=== PATIENT | female | born 1940 | race Caucasian/White ===

== ENCOUNTER 2017-06-20 18:20 | Inpatient (IN) | payer MEDICARE, BC ==
[~2017-06-20 18:20] MED LIST: BENADRYL25 MG PO; LEVAQUIN500 MG PO; LEVAQUIN750 MG PO; MEDROL DOSE PACK4 MG; MEVACOR20 MG PO; MUCINEX DM ER1 EAC1 PO; TYLENOL 325 MG325 MG PO; VENTOLIN HFA18 GM INH
[2017-06-20 20:22] LABS: BASOPHILS 0.1 % (0-2); EOSINOPHILS 0.1 % (0-7); HEMATOCRIT 35.6 % (36.0-48.0); HEMOGLOBIN 11.8 g/dL (12-16); IMMATURE GRANULOCYTES 0.3 % (0-5); LYMPHOCYTES 5.6 % (15-50); MCHC 33.1 g/dL (31.0-37.0); MCV 93.4 fL (80.0-100.0); MEAN PLATELET VOLUME 11.3 fL (7.4-10.4); MONOCYTES 8.1 % (2-11); NEUTROPHILS 85.8 % (40-80); PLATELET COUNT 164 10x3/uL (130-400); RBC 3.81 10x6/uL (4.00-5.40); RDW 13.8 % (11.5-14.5); WBC 12.3 10x3/uL (4.8-10.8)
[2017-06-20 20:39] LABS: ALBUMIN 3.3 g/dL (3.4-5.0); BILIRUBIN - TOTAL 0.62 mg/dL (0.2-1.3); CARBON DIOXIDE 25.3 mmol/L (21.0-32.0); CREATININE - SERUM 0.9 mg/dL (0.6-1.3); POTASSIUM - SERUM 3.3 mmol/L (3.5-5.1); PROTEIN - SERUM 7.2 g/dL (6.4-8.2)
[2017-06-20 20:56] LABS: APPEARANCE CLEAR (CLEAR); BILIRUBIN NEGATIVE (NEGATIVE); COLOR YELLOW (YELLOW); GLUCOSE NEGATIVE (NEGATIVE); KETONE MODERATE mg/dL (NEGATIVE); NITRITE NEGATIVE (NEGATIVE); PROTEIN TRACE mg/dL (NEGATIVE); SPECIFIC GRAVITY 1.015 (1.005-1.020); UROBILINOGEN NORMAL (NORMAL)
[2017-06-20 20:57] LABS: EPITHELIAL CELLS 0-5 /hpf (0-5); WHITE CELLS - URINE 0-5 /hpf (0-5)
[2017-06-20 20:58] LABS: BACTERIA FEW /hpf (NONE SEEN)
--- NOTE | 2017-06-21 00:30 | NUR ---
REC'D TO ROOM 2240 FROM ER DEPT PER STRETCHER A 77 Y/O W/FE PER SERVICES DR. MCGEE WITH DX. WEAKNESS AND DEHYDRATION AND FEVER.AND POSSIBLE PNEUMONIA. ALLERGY=AUGMENTIN. AMBULATED TO BR VOIDED FREELY. ASSISTED BACK TO BED SR UP X2 PT'S SISTER AT BEDSIDE.
[2017-06-21] MEDS ORDERED: ROBAXIN500 MG PO (00:31)
[2017-06-21] MEDS ORDERED: OXYBUTYNIN CHLOR5 MG PO (00:33)
[2017-06-21] MEDS ORDERED: FISH OIL 1,2001 CAP PO (00:34)
[2017-06-21] MEDS ORDERED: GLUCOSAMINE & C1 CAP (00:36)
[2017-06-21] MEDS ORDERED: TUMERIC PO (00:40)
[2017-06-21] MEDS ORDERED: VITAMIN D31000 UNI2 PO (00:40)
[2017-06-21] MEDS ORDERED: CRANBERRY 400 M1 TA1 PO (00:41)
[2017-06-21] MEDS ORDERED: VIC-FORTE CAPSUL1 MG PO (00:42)
[2017-06-21] MEDS ORDERED: VITAMIN B-12500 MC1 PO (00:42)
--- NOTE | 2017-06-21 02:00 | NUR ---
O2 ON 3L/M PER NC BILATERAL LUNGS SOUNDS DIMINISHED. NO DISTRESS. HOB UP 30 DEGREES.
[2017-06-21 02:57] VITALS: BP 140/70; BMI 26.5
[2017-06-21] MEDS ORDERED: XALATAN 0.0052.5 ML EACH EYE (03:18)
--- NOTE | 2017-06-21 04:00 | NUR ---
UP TO BSC WITH HELP VOIDED ASSISTED BACK TO BED.
[2017-06-21 06:32] LABS: BASOPHILS 0.1 % (0-2); EOSINOPHILS 0.1 % (0-7); HEMATOCRIT 34.1 % (36.0-48.0); HEMOGLOBIN 11.3 g/dL (12-16); IMMATURE GRANULOCYTES 0.3 % (0-5); LYMPHOCYTES 6.8 % (15-50); MCHC 33.1 g/dL (31.0-37.0); MCV 93.4 fL (80.0-100.0); MEAN PLATELET VOLUME 11.1 fL (7.4-10.4); MONOCYTES 8.3 % (2-11); NEUTROPHILS 84.4 % (40-80); PLATELET COUNT 157 10x3/uL (130-400); RBC 3.65 10x6/uL (4.00-5.40); WBC 12.4 10x3/uL (4.8-10.8)
[2017-06-21 06:58] LABS: ANION GAP 13.6 mmol/L (8-16); CALCIUM 8.6 mg/dL (8.5-10.1); CARBON DIOXIDE 24.8 mmol/L (21.0-32.0); CREATININE - SERUM 0.8 mg/dL (0.6-1.3); POTASSIUM - SERUM 3.4 mmol/L (3.5-5.1)
--- NOTE | 2017-06-21 07:25 | NUR ---
REPORT RECEIVED, ASSUMED CARE OF PT. RESTING WITH FAMILY AT BEDSIDE. R FOREARM IV INFUSING FLUIDS ORDERED, DRSG C/D/I. O2 VIA NASAL CANNULA IN PLACE, 3 L. NO NEEDS VOICED AT THIS TIME. BED IN LOWEST POSITION, SIDE RAILS UP X 2, CALL LIGHT WITHIN REACH.
[2017-06-21 08:03] VITALS: BP 141/46
[2017-06-21 12:07] VITALS: BP 99/53
[2017-06-21 16:12] VITALS: BP 124/56
[2017-06-21 20:00] VITALS: BP 116/54
[2017-06-22 06:49] LABS: BASOPHILS 0.1 % (0-2); EOSINOPHILS 1.1 % (0-7); HEMATOCRIT 29.8 % (36.0-48.0); HEMOGLOBIN 9.9 g/dL (12-16); IMMATURE GRANULOCYTES 0.2 % (0-5); LYMPHOCYTES 7.8 % (15-50); MCH 30.7 pg (26.0-34.0); MCHC 33.2 g/dL (31.0-37.0); MCV 92.3 fL (80.0-100.0); MEAN PLATELET VOLUME 11.2 fL (7.4-10.4); MONOCYTES 7.9 % (2-11); NEUTROPHILS 82.9 % (40-80); PLATELET COUNT 160 10x3/uL (130-400); RBC 3.23 10x6/uL (4.00-5.40); WBC 9.8 10x3/uL (4.8-10.8)
[2017-06-22 07:02] LABS: CALC OSMOLALITY 285 mosm/kg (275-300); CALCIUM 8.5 mg/dL (8.5-10.1); CARBON DIOXIDE 24.6 mmol/L (21.0-32.0); CHLORIDE - SERUM 111 mmol/L (98-107); CREATININE - SERUM 0.7 mg/dL (0.6-1.3); GLUCOSE 105 mg/dL (74-106); POTASSIUM - SERUM 3.2 mmol/L (3.5-5.1); SODIUM 144 mmol/L (136-145); UREA NITROGEN 9 mg/dL (7-18); eGFR NON AFRICAN AMERICAN 85 mL/min (90-120)
--- NOTE | 2017-06-22 07:10 | NUR ---
REPORT RECEIEVED, ASSUMED CARE OF PT. RESTING, EASILY AROUSED. SISTER AT BEDSIDE, NO NEEDS VOICED AT THIS TIME. R FOREARM IV INFUSING ORDERED, DRSG C/D/I. O2 VIA NASAL CANNULA AT 3L/MIN. BED IN LOWEST POSITION, SIDE RAILS UP X 2, CALL LIGHT WITHIN REACH.
--- NOTE | 2017-06-22 07:17 | NUR ---
ASSESSED AT THE BEGINNING OF THE SHIFT. PT IS ALERT AND ORIENTED, ABLE TO VERBALIZE NEEDS. THE SISTER REMAINS AT THE BEDSIDE AND IS TAKING HER TO THE BATHROOM NEEDED. THERE IS O2 AT 3 LITERS AND HER RESPIRATIONS SEEM GOOD WITH VERY LITTLE COUGHING. SHE HAS COMPLAINTED OF NEEDING COUGH SYRUP AND IS GOING TO ASK THE MD FOR IT TODAY. SHE IS ABLE TO TURN AND REPOSITION. THE BED IS LOW, RAILS UP X'S 2 WITH THE CALL LIGHT AT HAND. SCD'S HAVE BEEN WORN.
[2017-06-22 08:37] VITALS: BP 128/53
--- NOTE | 2017-06-22 11:46 | NUR ---
Patient Name: LAURY YANEZ Admission Status: ER Accout number: [id number] Admission Date: 06-21-2017 : 1940 Admission Diagnosis:PNEUMONIA, UNSPECIFIED ORGANISM Attending: NANCY MCGEE Current LOS: 1 Anticipated DC Date: 06-23-2017 Planned Disposition: Home Primary Insurance: MEDICARE A & B Discharge Planning Comments: CM SPOKE WITH PATIENTS SISTER (JIE) ON PHONE REGARDING D/C NEEDS AND PLANS. SISTER STATED SHE WILL DRIVE PATIENT HOME AT DISCHARGE. PATIENT LIVES ON PROPERTY BY SISTER AND DOES HAVE A LITTLE MEMORY LOSS. PATIENT IS INDEPENDENT WITH HER CARE AND HAS A CANE AND SHOWER STOOL AT HOME. PATIENT SEES [facility] AT [facility] AND USES [facility] UNLESS DISCHARGED ON SUNDAY OR SUNDAY AND THEN SHE WILL USE [facility] [address] PATIENTS SISTER DOES NOT WANT HOME HEALTH FOR PATIENT. CM WILL CONTINUE TO FOLLOW PATIENT WITH D/C NEEDS AND PLANS. PCP [facility] AT [facility] M-F [phone] [facility] [phone] Torpedo Worker: Renetta Bautista How many steps to enter\exit or inside your home? 3 /RAILS 0 * [facility] 0 * Pharmacy [facility] BUT ON SUN AND SUNDAY [facility] [address] 0 * Preadmission Environment Home Alone 0 * ADLs Independent 0 * Equipment Cane Shower Chair 0 * List name and contact numbers for known caregivers / representatives who currently or will assist patient after discharge: JIE BUSTAMANTE (SISTER) [phone] * Community resources currently utilized None 0 * Additional services required to return to the preadmission environment? Yes 0 * Can the patient safely return to the preadmission environment? Yes 0 * Has this patient been hospitalized within the prior 30 days at any hospital? No 0 Grand Total: 0
[2017-06-22 12:20] VITALS: BP 155/64
[2017-06-22 15:56] VITALS: BP 160/71
--- NOTE | 2017-06-22 16:00 | NUR ---
PT IV PULLED OUT OF ARM ACCIDENTLY BY PT, BLEED CONTROL, BANDAGE APPLIED. RE-SITED TO R FOREARM.
[2017-06-22 21:35] VITALS: BP 151/64
[2017-06-23 00:47] VITALS: BP 134/74
--- NOTE | 2017-06-23 03:21 | NUR ---
PT COUGHING FREQUENTLY. GAVE COUGH MEDICINE TWICE THIS SHIFT. DAUGHTER AT BEDSIDE. PT CONFUSED AT TIMES TO SITUATION. GAVE TYLENOL FOR TEMP 100.2 REQUESTED BY PT/FAMILY. NO OTHER NEEDS. ASSESSMENT COMPLETE PER FLOW-SHEET. WILL CONTINUE TO MONITOR.
[2017-06-23 04:00] VITALS: BP 137/68
--- NOTE | 2017-06-23 07:00 | NUR ---
REPORT RECIEVED ASSUMED CARE. PATIENT IN BED WITH IV INTACT. NO COMPLAINTS. CALL LIGHT WITHIN REACH.
--- NOTE | 2017-06-23 07:00 | NUR ---
REPORT RECIEVED ASSUMED CARE. PATIENT IN BED WITH NO COMPLAINTS AT THIS TIME. IV INTACT. FAMILY AT BEDSIDE. CALL LIGHT WITHIN REACH.
[2017-06-23 07:07] LABS: BASOPHILS 0.1 % (0-2); EOSINOPHILS 1.7 % (0-7); HEMATOCRIT 28.4 % (36.0-48.0); HEMOGLOBIN 9.5 g/dL (12-16); IMMATURE GRANULOCYTES 0.4 % (0-5); LYMPHOCYTES 9.3 % (15-50); MCH 30.6 pg (26.0-34.0); MCHC 33.5 g/dL (31.0-37.0); MCV 91.6 fL (80.0-100.0); MEAN PLATELET VOLUME 11.3 fL (7.4-10.4); MONOCYTES 10.3 % (2-11); NEUTROPHILS 78.2 % (40-80); PLATELET COUNT 186 10x3/uL (130-400); RDW 14.5 % (11.5-14.5); WBC 8.1 10x3/uL (4.8-10.8)
[2017-06-23 07:15] LABS: CALC OSMOLALITY 284 mosm/kg (275-300); CALCIUM 8.7 mg/dL (8.5-10.1); CARBON DIOXIDE 24.6 mmol/L (21.0-32.0); CHLORIDE - SERUM 111 mmol/L (98-107); CREATININE - SERUM 0.7 mg/dL (0.6-1.3); GLUCOSE 104 mg/dL (74-106); POTASSIUM - SERUM 3.2 mmol/L (3.5-5.1); SODIUM 144 mmol/L (136-145); UREA NITROGEN 8 mg/dL (7-18); eGFR NON AFRICAN AMERICAN 85 mL/min (90-120)
[2017-06-23 08:11] VITALS: BP 139/83
--- NOTE | 2017-06-23 10:20 | NUR ---
PATIENT SITTING UP IN BED WITH NO COMPLAINTS AT THIS TIME. IV INTACT. FAMILY AT BEDSIDE. CALL LIGHT WITHIN REACH.
[2017-06-23] MEDS ORDERED: ROBITUSSIN AC (10 M1 PO (10:30)
--- NOTE | 2017-06-23 12:45 | NUR ---
PATIENT RECIEVED DC ORDERS. VERBALIZED UNDERSTANDING. PRESCRIPTION GIVEN TO FAMILY. LEVAQUIN AND MEDROL DOSE MARIA R CALLED INTO [facility] [address]QUEST[address]. IV REMOVED WITH CATH TIP INTACT. VERBALIZED UNDERSTANDING. CALL LIGHT WITHIN REACH.
--- NOTE | 2017-06-23 14:22 | NUR ---
CM MET W/ PATIENT, HER SISTER, JIE AND HER SON AT THE BEDSIDE. PLAN FOR DISCHARGE TO HOME. THE PAIENT' SISTER STATES SHE NEEDS A WALKER. SHE ALSO REQUEST A NEBULIZER IF SHE IS SENT HOME ON MDI'S. THE FAMILY DECLINES HOME HEALTH. CM ADVISED HOW TO OBTAIN H/H AFTER DISCHARGE. NO PREFERRED PROVIDER FOR THE WALKER. TC TO [facility]. SPOKE WITH STEM MOUNTER, STEPHANIE. [facility] THE [facility] OFFICE CAN DELIVER THE WALKER TO THE PATIENT'S HOME. FAMILY IS COMFORTABLE WITH THAT. CM FAXED MD ORDER AND INFORMATION TO [facility]. THEY WILL CONTACT THE PATIENT'S FAMILY FOR DELIVERY. THE PATIENT WILL NOT QUALIFY FOR MEDICARE TO PAY FOR NEBULIZER WITH PRESENT DOCUMENTATION. CM INSTRUCTED THE FAMILY TO CALL PATIENT'S PRIMARY SHE MAY HAVE MORE DETAILED INFORMATION FROM HER PCP WITH QUALIFYING DX. THEY DENY ANY ADDITIONAL NEEDS. PATIENT'S PHYSICAL ADDRESS [address] [place] [address], [id number] NOTED FOR DME DELIVERY. FACE SHEET HAD MAILING ADDRESS ONLY.
== END 2017-06-23 13:07 | disposition home or self-care (01) | DRG 193 ==
LOC: D.ER 18:20 → D.MS 23:17 → OBSVTIME 23:17 → D.MS 06-21 14:08
PROVIDERS: Emergency Medicine Emergency Medical Services; Family Medicine; ADMIT Family Medicine
DX: J18.9 Pneumonia, unspecified organism (principal); G93.40 Encephalopathy, unspecified; E78.5 Hyperlipidemia, unspecified

== ENCOUNTER 2019-06-11 19:57 | Observation (INO) | payer MEDICARE, BC ==
[~2019-06-11] VITALS: Ht 154.9 cm; Wt 71.8 kg
[~2019-06-11 19:57] MED LIST changes: +CRANBERRY 400 M1 TA1 PO; +FISH OIL 1,2001 CAP PO; +GLUCOSAMINE-CHONDROI PO; +OXYBUTYNIN CHLOR5 MG PO; +ROBAXIN500 MG PO; +ROBITUSSIN AC (10 M1 PO; +TUMERIC PO; +VIC-FORTE CAPSUL1 MG PO; +VITAMIN B-12500 MC1 PO; +VITAMIN D31000 UNI2 PO; +XALATAN 0.0052.5 ML EACH EYE
[2019-06-11 21:20] LABS: BASOPHILS 0.1 % (0-2); EOSINOPHILS 0.1 % (0-7); HEMATOCRIT 39.2 % (36.0-48.0); IMMATURE GRANULOCYTES 0.3 % (0-5); LYMPHOCYTES 6.3 % (15-50); MCH 31.4 pg (26.0-34.0); MCHC 33.2 g/dL (31.0-37.0); MCV 94.7 fL (80.0-100.0); MEAN PLATELET VOLUME 11.2 fL (7.4-10.4); MONOCYTES 6.3 % (2-11); NEUTROPHILS 86.9 % (40-80); PLATELET COUNT 179 10x3/uL (130-400); RBC 4.14 10x6/uL (4.00-5.40); RDW 13.9 % (11.5-14.5); WBC 15.5 10x3/uL (4.8-10.8)
[2019-06-11 21:54] LABS: APPEARANCE CLEAR (CLEAR); BILIRUBIN NEGATIVE (NEGATIVE); COLOR YELLOW (YELLOW); GLUCOSE NEGATIVE (NEGATIVE); KETONE SMALL mg/dL (NEGATIVE); NITRITE NEGATIVE (NEGATIVE); PROTEIN NEGATIVE (NEGATIVE); SPECIFIC GRAVITY 1.015 (1.005-1.020); UROBILINOGEN NORMAL (NORMAL); WHITE CELLS - URINE 0-5 /hpf (NEGATIVE)
[2019-06-11 21:55] LABS: BACTERIA FEW /hpf (NEGATIVE); EPITHELIAL CELLS OCC /hpf (0-5); RED CELLS - URINE OCC /hpf (0-5)
[2019-06-11 22:00] LABS: ALBUMIN 3.6 g/dL (3.4-5.0); ALKALINE PHOSPHATASE 67 U/L (46-116); ALT (SGPT) 16 U/L (10-68); BILIRUBIN - TOTAL 0.76 mg/dL (0.2-1.3); CALC OSMOLALITY 281 mosm/kg (275-300); CALCIUM 8.8 mg/dL (8.5-10.1); CARBON DIOXIDE 28.8 mmol/L (21.0-32.0); CHLORIDE - SERUM 104 mmol/L (98-107); CREATININE - SERUM 0.7 mg/dL (0.6-1.3); GLUCOSE 113 mg/dL (74-106); POTASSIUM - SERUM 4.4 mmol/L (3.5-5.1); PROTEIN - SERUM 6.8 g/dL (6.4-8.2); SODIUM 141 mmol/L (136-145); UREA NITROGEN 12 mg/dL (7-18); eGFR NON AFRICAN AMERICAN 85 mL/min (90-120)
[2019-06-11 22:09] LABS: CKMB 0.2 U/L (0.0-3.6); CREATINE KINASE 42 UL (21-215); PRO BNP 217 pg/mL (0-450)
[2019-06-11 22:10] LABS: TROPONIN-I < 0.017 ng/mL (0.000-0.060)
--- NOTE | 2019-06-12 01:20 | NUR ---
RECEIVED PT FROM ER VIA STRETCHER. PT IS ALERT AND ORIENTED TO SELF AND PLACE. CONFUSED. ACCOMPANIED BY SISTER/CAREGIVER. PT SON BRII IS POA BUT NOT PRESENT. STATES PT ALMOST FAINTED TODAY. HX OF FALL 1 MONTH AGO. REPORTS EPISODE OF DIARRHEA YESTERDAY AM. BRUISES NOTED TO BLE. GEN WEAKNESS NOTED. NOLVIA ALARM I USE FOR PT SAFETY. RESP NONLABORED. INSTRUCTED ON NPO STATUS. INCONT OF URINE. BRIEF ON. PTS SISTER JIE LIVES WITH HER. NS BOLUS INFUSING AT THIS TIME IN LT FOREARM WITHOUT DIFF. DENIES PAIN. SR ELEVATED X2. CL IN REACH.
[2019-06-12] MEDS ORDERED: LOVASTATIN20 MG PO (01:58)
[2019-06-12] MEDS ORDERED: ARMOUR THYROID30 MG PO (01:59)
[2019-06-12] MEDS ORDERED: ALEVE220 MG PO (02:00)
[2019-06-12 02:56] VITALS: BP 147/73; Ht 154.9 cm; Wt 71.8 kg
--- NOTE | 2019-06-12 03:48 | NUR ---
EYES CLOSED. RESP EVEN AND NONLABORED. SISTER AT BEDSIDE. NO DISTRESS. NOLVIA ALARM ON. IV INFUSING WITHOUT DIFF. CL IN REACH.
[2019-06-12 05:12] VITALS: BP 154/70
[2019-06-12 06:14] LABS: BASOPHILS 0.2 % (0-2); EOSINOPHILS 0.4 % (0-7); HEMATOCRIT 36.4 % (36.0-48.0); HEMOGLOBIN 11.9 g/dL (12-16); IMMATURE GRANULOCYTES 0.2 % (0-5); LYMPHOCYTES 9.6 % (15-50); MCH 30.5 pg (26.0-34.0); MCHC 32.7 g/dL (31.0-37.0); MCV 93.3 fL (80.0-100.0); MEAN PLATELET VOLUME 11.3 fL (7.4-10.4); MONOCYTES 6.9 % (2-11); NEUTROPHILS 82.7 % (40-80); PLATELET COUNT 193 10x3/uL (130-400); RDW 14.2 % (11.5-14.5); WBC 12.2 10x3/uL (4.8-10.8)
[2019-06-12 06:40] LABS: ALBUMIN 3.2 g/dL (3.4-5.0); ALKALINE PHOSPHATASE 63 U/L (46-116); ALT (SGPT) 14 U/L (10-68); AMYLASE - SERUM 31 U/L (25-115); BILIRUBIN - TOTAL 0.85 mg/dL (0.2-1.3); CALC OSMOLALITY 283 mosm/kg (275-300); CALCIUM 8.1 mg/dL (8.5-10.1); CARBON DIOXIDE 28.5 mmol/L (21.0-32.0); CHLORIDE - SERUM 108 mmol/L (98-107); CREATININE - SERUM 0.6 mg/dL (0.6-1.3); GLUCOSE 94 mg/dL (74-106); LIPASE 168 U/L (73-393); PROTEIN - SERUM 6.4 g/dL (6.4-8.2); SODIUM 143 mmol/L (136-145); UREA NITROGEN 9 mg/dL (7-18); eGFR NON AFRICAN AMERICAN > 90 mL/min (90-120)
[2019-06-12 06:43] LABS: POTASSIUM - SERUM 3.7 mmol/L (3.5-5.1); TROPONIN-I < 0.017 ng/mL (0.000-0.060)
--- NOTE | 2019-06-12 06:43 | NUR ---
HAS BEEN INCONTINENT OF URINE SEVERAL TIMES TONIGHT. INCONT AT THIS TIME, PERICARE PROVIDED, PADS CHANGED. PT COUGHED AND URINATED AGAIN AND PERICARE WAS PERFORMED AGAIN. FAMILY AT BEDSIDE. CL IN REACH.
--- NOTE | 2019-06-12 07:05 | NUR ---
ALERT AND ORIENTED X2, RESTING IN BED. FAMILY AT BEDSIDE. NOLVIA ALARM ON. NO C/O PAIN. NO S/S OF ACUTE DISTRESS NOTED. IV TO LEFT FOREARM, NS INFUSING @ 125ML/HR. SITE PATENT WITHOUT REDNESS OR SWELLING. ON TELEMETRY, SR 88. PT DENIES ANY NEEDS AT THIS TIME. CALL LIGHT IN REACH. WILL CONTINUE TO MONITOR.
[2019-06-12 08:34] VITALS: BP 171/70
[2019-06-12 11:50] LABS: CHOL - HDL RATIO 2.3 ratio (2.3-4.1); LDL-HDL RATIO 1.2 ratio (1.5-3.5); THYROID STIMULATING HORMONE 1.87 uIU/mL (0.36-3.74)
[2019-06-12 13:09] VITALS: BP 168/72
--- NOTE | 2019-06-12 17:15 | NUR ---
IV SITED TO RIGHT FOREARM AFTER ONE ATTEMPT WITH 22G. DENIES NEEDS. FAMILY AT BEDSIDE. I have reviewed this patient and I concur with the Shift Assessment completed by the Licensed Practical Nurse today this shift.
--- NOTE | 2019-06-12 17:27 | MORECARE ---
CASE MANAGEMENT DISCHARGE SUMMARY PATIENT: LAURY YANEZ UNIT: [id number] ADM DATE: 06/12/19 AGE: 79 : 38 SEX: F ROOM/BED: D.[facility] AUTHOR: DARRELL OSULLIVAN PHYSICIAN: REFERRING PHYSICIAN: DANA VALDEZ MD DATE OF SERVICE: 06/12/19 Discharge Plan Patient Name: LAURY YANEZ Facility: [facility]:[place] : 1940 Planned Disposition: Home Anticipated Discharge Date: 06/12/19 Discharge Date: Expected LOS: 1 Initial Reviewer: [email or web address] Initial Review Date: 06/12/2019 Generated: 06/12/19 6:26 pm DCPIA - Discharge Planning Initial Assessment Updated by [email or web address]: Felicia Bhatia on 06/12/19 5:26 pm * Is the patient Alert and Oriented? Yes * How many steps to enter\exit or inside your home? 3/0 * PCP [facility] * [facility] * Preadmission Environment Home with Family * ADLs Partial Dependent * Partial ADLs (Assistance needed) Ambulation Bathing Medication Management * Equipment Cane Walker * List name and contact numbers for known caregivers / representatives who currently or will assist patient after discharge: Carla Moseley - sister - [phone] * Verbal permission to speak to the caregivers and representatives has been obtained from the patient. Yes * Community resources currently utilized None * Additional services required to return to the preadmission environment? No * Can the patient safely return to the preadmission environment? Yes * Has this patient been hospitalized within the prior 30 days at any hospital? No Coverage Notice Reviewer: [id number] - Felicia Bhatia Notice Issued Date-Time: 06/12/2019 17:22 Notice Type: Medicare Outpatient Observation Notice Notice Delivered To: Family Member Relationship to Patient: Sister Cementer Machine Name: Carla Moseley Delivery Method: HAND - Hand Delivered Jane Days: Prior Verbal Notification: Recipient Understood Notice: Yes Recipient Signature: Yes Med Rec Note Co-signed by Attending: Coverage Notice Comment: ANTOINE explained, patient is awake and alert but requests her sister sign the form, form signed by sister, given, copy placed in MR Patient Name: LAURY YANEZ Page [id number] at 1727 All edits/amendments must be made on the electronic document DICTATION DATE: 06/12/191725 CONSTRUCTION HELPER: CARMELINA 06/12/191725 RPT#: [id number] DC DATE: STATUS: ADM IN [facility] [address] [place] [address] END OF REPORT
--- NOTE | 2019-06-12 17:34 | MORECARE ---
CASE MANAGEMENT DISCHARGE SUMMARY PATIENT: LAURY YANEZ UNIT: [id number] ADM DATE: 06/12/19 AGE: 79 : 38 SEX: F ROOM/BED: D.2237 AUTHOR: SHI,DOC PHYSICIAN: REFERRING PHYSICIAN: DANA VALDEZ MD DATE OF SERVICE: 06/12/19 Discharge Plan Patient Name: LAURY YANEZ Facility: [facility]:[place] : 1940 Planned Disposition: Home Anticipated Discharge Date: 06/12/19 Discharge Date: Expected LOS: 1 Initial Reviewer: [email or web address] Initial Review Date: 06/12/2019 Generated: 06/12/19 6:34 pm Comments DCP- Discharge Planning Updated by [email or web address]: Felicia Bhatia on 06/12/19 4:[address] Patient Name: LAURY YANEZ Admission Status: ER Accout number: [id number] Admission Date: 06-12-2019 : 1940 Admission Diagnosis: Attending: DANA VALDEZ Current LOS: 1 Anticipated DC Date: 06-12-2019 Planned Disposition: Home Primary Insurance: MEDICARE A & B Discharge Planning Comments: CM met with patient to complete initial dc planning assessment. CM educated patient on the CM role and verbal consent given by patient to complete assessment. Patient lives at home with her sister. At discharge patient plans to return and feels this is a safe discharge. CM discussed availability of home health, rehab services, and medical equipment. Patient denied known discharge needs at this time. Her sister states that she is able to help with all her needs and they do not want home health at this time. CM will continue to follow and will assist as needed with dc plans/needs. Drapery Cutter: Felicia Bhatia DCPIA - Discharge Planning Initial Assessment Updated by [email or web address]: Felicia Bhatia on 06/12/19 5:26 pm * Is the patient Alert and Oriented? Yes * How many steps to enter\exit or inside your home? 3/0 * PCP [facility] * [facility] * Preadmission Environment Home with Family * ADLs Partial Dependent * Partial ADLs (Assistance needed) Ambulation Bathing Medication Management * Equipment Cane Walker * List name and contact numbers for known caregivers / representatives who currently or will assist patient after discharge: Carla Moseley - sister - [phone] * Verbal permission to speak to the caregivers and representatives has been obtained from the patient. Yes * Community resources currently utilized None * Additional services required to return to the preadmission environment? No * Can the patient safely return to the preadmission environment? Yes * Has this patient been hospitalized within the prior 30 days at any hospital? No Coverage Notice Reviewer: [id number] Alba Bhatia Notice Issued Date-Time: 06/12/2019 17:22 Notice Type: Medicare Outpatient Observation Notice Notice Delivered To: Family Member Relationship to Patient: Sister Oceanographer Geological Name: Carla Moseley Delivery Method: HAND - Hand Delivered Jane Days: Prior Verbal Notification: Recipient Understood Notice: Yes Recipient Signature: Yes Med Rec Note Co-signed by Attending: Coverage Notice Comment: ELINA explained, patient is awake and alert but requests her sister sign the form, form signed by sister, given, copy placed in MR Last DP export: 06/12/19 4:27 Patient Name: LAURY YANEZ Page [id number] at 1734 All edits/amendments must be made on the electronic document DICTATION DATE: 06/12/191733 CAN HANDLER: CARMELINA 06/12/191733 RPT#: [id number] DC DATE: STATUS: ADM IN [facility] [address] [place] [address] END OF REPORT
--- NOTE | 2019-06-12 18:56 | NUR ---
SITTING UP IN BED EATING SUPPER. NO C/O PAIN. NO S/S OF ACUTE DISTRESS NOTED. PT DENIES ANY NEEDS. CALL LIGHT IN REACH. WILL CONTINUE TO MONITOR.
--- NOTE | 2019-06-12 19:45 | NUR ---
LYING IN BED. ANXIOUS AND RESTLESS. VERY CONFUSED. SISTER STATES SHE HAS GOTTEN MORE CONFUSED THIS EVENING. PT HAS ALZHEIMERS. SKIN IS WARM AND FLUSHED. TELEMETRY SHOWS SR WITH RATE OF 94. PUREWICK CATH IN USE WITH YELLOW URINE IN CANISTER. NONPROD COUGH NOTED. O2 @ 2LNC. NS @ 50 ML/HR INFUSING IN RT FOREARM WITHOUT DIFF. SR ELEVATED X2. DENIES PAIN. CL IN REACH. NOLVIA ALARM IN USE FOR PT SAFETY.
[2019-06-12 21:46] VITALS: BP 130/73
--- NOTE | 2019-06-12 21:46 | NUR ---
MEDICATED WITH TYLENOL FOR ELEVATED TEMP.
--- NOTE | 2019-06-13 04:13 | NUR ---
MEDICATED WITH TYLENOL FOR LOW GRADE TEMP. FACE IS FLUSHED. DENIES PAIN. FAMILY AT BEDSIDE. CL IN REACH. NO DISTRESS.
[2019-06-13 05:27] LABS: BASOPHILS 0.2 % (0-2); EOSINOPHILS 1.1 % (0-7); HEMATOCRIT 35.9 % (36.0-48.0); HEMOGLOBIN 11.7 g/dL (12-16); IMMATURE GRANULOCYTES 0.3 % (0-5); LYMPHOCYTES 8.9 % (15-50); MCH 30.8 pg (26.0-34.0); MCHC 32.6 g/dL (31.0-37.0); MCV 94.5 fL (80.0-100.0); MEAN PLATELET VOLUME 11.4 fL (7.4-10.4); NEUTROPHILS 81.5 % (40-80); PLATELET COUNT 177 10x3/uL (130-400); RDW 14.3 % (11.5-14.5); WBC 12.1 10x3/uL (4.8-10.8)
[2019-06-13 05:29] VITALS: BP 141/57
[2019-06-13 05:46] LABS: CALC OSMOLALITY 279 mosm/kg (275-300); CALCIUM 8.1 mg/dL (8.5-10.1); CARBON DIOXIDE 24.4 mmol/L (21.0-32.0); CHLORIDE - SERUM 108 mmol/L (98-107); CREATININE - SERUM 0.6 mg/dL (0.6-1.3); GLUCOSE 96 mg/dL (74-106); POTASSIUM - SERUM 3.3 mmol/L (3.5-5.1); SODIUM 141 mmol/L (136-145); UREA NITROGEN 11 mg/dL (7-18); eGFR NON AFRICAN AMERICAN > 90 mL/min (90-120)
--- NOTE | 2019-06-13 07:05 | NUR ---
ALERT AND ORIENTED X2. RESTING IN BED, EYES OPEN. NO C/O PAIN. NO S/S OF ACUTE DISTRESS NOTED. SCDS PRESENT. ON 2L O2, NC. IV TO RIGHT FOREARM, NS INFUSING @ 50ML/HR. SITE PATENT WITHOUT REDNESS OR SWELLING. ON TELEMETRY 79 SR. YIMI PRESENT. PT DENIES ANY NEEDS AT THIS TIME. FAMILY AT BEDSIDE. CALL LIGHT IN REACH. WILL CONTINUE TO MONTIOR.
[2019-06-13 08:18] VITALS: BP 151/63
[2019-06-13] MEDS ORDERED: SULFAMETHOXAZOL1 TA2 PO (12:19)
[2019-06-13 12:21] VITALS: BP 153/68
--- NOTE | 2019-06-13 13:10 | MORECARE ---
CASE MANAGEMENT DISCHARGE SUMMARY PATIENT: LAURY YANEZ UNIT: [id number] ADM DATE: 06/12/19 AGE: 79 : 38 SEX: F ROOM/BED: D.2237 AUTHOR: SHIDOC PHYSICIAN: REFERRING PHYSICIAN: DANA VALDEZ MD DATE OF SERVICE: 06/13/19 Discharge Plan Patient Name: LAURY YANEZ Facility: [facility]:[place] : 1940 Planned Disposition: Home Anticipated Discharge Date: 06/12/19 Discharge Date: Expected LOS: 1 Initial Reviewer: [email or web address] Initial Review Date: 06/12/2019 Generated: 06/13/19 2:09 pm Comments DCP- Discharge Planning Updated by [email or web address]: Felicia Bhatia on 06/13/19 12:[address] Patient Name: LAURY YANEZ Encounter No: [id number] : 1940 Primary Insurance: MEDICARE A & B Anticipated DC Date: 06-12-2019 Planned Disposition: Home External Planned Provider: : DCP follow-up note: Patient and family in agreement with discharge plan. No changes to plan. Case management will follow and assist as needed. Felicia Bhatia DCP- Discharge Planning Updated by [email or web address]: Felicia Bhatia on 06/12/19 4:[address] Patient Name: LAURY YANEZ Admission Status: ER Accout number: [id number] Admission Date: 06-12-2019 : 1940 Admission Diagnosis: Attending: DANA VALDEZ Current LOS: 1 Anticipated DC Date: 06-12-2019 Planned Disposition: Home Primary Insurance: MEDICARE A & B Discharge Planning Comments: CM met with patient to complete initial dc planning assessment. CM educated patient on the CM role and verbal consent given by patient to complete assessment. Patient lives at home with her sister. At discharge patient plans to return and feels this is a safe discharge. CM discussed availability of home health, rehab services, and medical equipment. Patient denied known discharge needs at this time. Her sister states that she is able to help with all her needs and they do not want home health at this time. CM will continue to follow and will assist as needed with dc plans/needs. Cruise Counselor: Felicia Bhatia DCPIA - Discharge Planning Initial Assessment Updated by [id number]: Felicia Jannette on 06/12/19 5:26 pm * Is the patient Alert and Oriented? Yes * How many steps to enter\exit or inside your home? 3/0 * PCP [facility] * [facility] * Preadmission Environment Home with Family * ADLs Partial Dependent * Partial ADLs (Assistance needed) Ambulation Bathing Medication Management * Equipment Cane Walker * List name and contact numbers for known caregivers / representatives who currently or will assist patient after discharge: Carla Moseley - sister - [phone] * Verbal permission to speak to the caregivers and representatives has been obtained from the patient. Yes * Community resources currently utilized None * Additional services required to return to the preadmission environment? No * Can the patient safely return to the preadmission environment? Yes * Has this patient been hospitalized within the prior 30 days at any hospital? No Coverage Notice Reviewer: [id number] - Felicia Bhatia Notice Issued Date-Time: 06/12/2019 17:22 Notice Type: Medicare Outpatient Observation Notice Notice Delivered To: Family Member Relationship to Patient: Sister Printing Equipment Mechanic Apprentice Name: Carla Moseley Delivery Method: HAND - Hand Delivered Jane Days: Prior Verbal Notification: Recipient Understood Notice: Yes Recipient Signature: Yes Med Rec Note Co-signed by Attending: Coverage Notice Comment: ELINA explained, patient is awake and alert but requests her sister sign the form, form signed by sister, given, copy placed in MR Last DP export: 06/12/19 4:34 Patient Name: LAURY YANEZ Page [phone] at 1310 All edits/amendments must be made on the electronic document DICTATION DATE: 06/13/19 1309 GAS REGULATOR REPAIRER HELPER: CARMELINA 06/13/19 1309 RPT#: [id number] DC DATE: STATUS: ADM IN [facility] [address] [place] [address] END OF REPORT
--- NOTE | 2019-06-13 15:41 | NUR ---
DISCHARGED PATIENT HOME WITH FAMILY VIA WHEELCHAIR. WENT OVER DISCHARGE INSTRUCTIONS WITH PATIENT AND FAMILY, VERBALIZED UNDERSTANDING. DISCONTINUED IV, CATHETER TIP INTACT. NO C/O PAIN. NO S/S OF ACUTE DISTRESS NOTED. PATIENT DENIES ANYTHING FURTHER.
--- NOTE | 2019-06-13 16:54 | MORECARE ---
CASE MANAGEMENT DISCHARGE SUMMARY PATIENT: LAURY YANEZ UNIT: [id number] ADM DATE: 06/12/19 AGE: 79 : 38 SEX: F ROOM/BED: D.2237 AUTHOR: SHIDOC PHYSICIAN: REFERRING PHYSICIAN: DANA VALDEZ MD DATE OF SERVICE: 06/13/19 Discharge Plan Patient Name: LAURY YANEZ Facility: [facility]:[place] : 1940 Planned Disposition: Home Anticipated Discharge Date: 06/12/19 Discharge Date: 06/13/2019 Expected LOS: 1 Initial Reviewer: [email or web address] Initial Review Date: 06/12/2019 Generated: 06/13/19 5:54 pm Comments DCP- Discharge Planning Updated by [id number]: Felicia Bhatia on 06/13/19 12:[address] Patient Name: LAURY YANEZ Encounter No: [id number] : 1940 Primary Insurance: MEDICARE A & B Anticipated DC Date: 06-12-2019 Planned Disposition: Home External Planned Provider: : DCP follow-up note: Patient and family in agreement with discharge plan. No changes to plan. Case management will follow and assist as needed. Felicia Bhatia DCP- Discharge Planning Updated by [id number]: Felicia Bhatia on 06/12/19 4:[address] Patient Name: LAURY YANEZ Admission Status: ER Accout number: [id number] Admission Date: 06-12-2019 : 1940 Admission Diagnosis: Attending: DANA VALDEZ Current LOS: 1 Anticipated DC Date: 06-12-2019 Planned Disposition: Home Primary Insurance: MEDICARE A & B Discharge Planning Comments: CM met with patient to complete initial dc planning assessment. CM educated patient on the CM role and verbal consent given by patient to complete assessment. Patient lives at home with her sister. At discharge patient plans to return and feels this is a safe discharge. CM discussed availability of home health, rehab services, and medical equipment. Patient denied known discharge needs at this time. Her sister states that she is able to help with all her needs and they do not want home health at this time. CM will continue to follow and will assist as needed with dc plans/needs. Ui Ux Developer: Felicia Bhatia DCPIA - Discharge Planning Initial Assessment Updated by [id number]: Felicia Jannette on 06/12/19 5:26 pm * Is the patient Alert and Oriented? Yes * How many steps to enter\exit or inside your home? 3/0 * [facility]CP [facility] * [facility] * Preadmission Environment Home with Family * ADLs Partial Dependent * Partial ADLs (Assistance needed) Ambulation Bathing Medication Management * Equipment Cane Walker * List name and contact numbers for known caregivers / representatives who currently or will assist patient after discharge: Carla Moseley - sister - [phone] * Verbal permission to speak to the caregivers and representatives has been obtained from the patient. Yes * Community resources currently utilized None * Additional services required to return to the preadmission environment? No * Can the patient safely return to the preadmission environment? Yes * Has this patient been hospitalized within the prior 30 days at any hospital? No Coverage Notice Reviewer: [id number] - Felicia Jannette Notice Issued Date-Time: 06/12/2019 17:22 Notice Type: Medicare Outpatient Observation Notice Notice Delivered To: Family Member Relationship to Patient: Sister Rug Renovator Name: Carla Moseley Delivery Method: HAND - Hand Delivered Jane Days: Prior Verbal Notification: Recipient Understood Notice: Yes Recipient Signature: Yes Med Rec Note Co-signed by Attending: Coverage Notice Comment: ELINA explained, patient is awake and alert but requests her sister sign the form, form signed by sister, given, copy placed in MR Last DP export: 06/13/19 12:09 Patient Name: LAURY YANEZ Page [phone] at 1654 All edits/amendments must be made on the electronic document DICTATION DATE: 06/13/191652 TECHNOLOGIST DEVELOPMENT: CARMELINA 06/13/191652 RPT#: [id number] DC DATE:06/13/19 STATUS: DIS IN [facility] [address] [place] [address] END OF REPORT
--- NOTE | 2019-06-16 11:10 | EC ---
PATIENT:LAURY YANEZ DATE OF SERVICE: 06/12/19 SEX: F MEDICAL RECORD: [id number] DATE OF : 36 LOCATION:D.[facility] AGE OF PATIENT: 79 ADMISSION DATE: 06/12/19 REFERRING PHYSICIAN: INTERPRETING PHYSICIAN: FLAVIA SHAH MD ECHOCARDIOGRAM REPORT ECHO CHARGES 4 ECHO COMPLETE Date: 06/12/19 CLINICAL DIAGNOSIS: DIZZINESS/SYNCOPE R/O VALVE DISEASE ECHOCARDIOGRAPHIC MEASUREMENTS (adult normal given) AC root (d.<3.7cm) 3.2 cm LV Septum d (<1.2 cm> 1.0 cm Valve Excursion 1.3 cm LV Septum (systole) 1.6 cm Left Atria (s.<4.0cm> 3.0 cm LVPW d(<1.2cm) 1.1 cm RV (d.<2.3cm) 2.3 cm LVPW (sytole) 1.7 cm LV diastole(<5.6CM) 4.4 cm MV E-F(>70mm/sec) cm LV systole 2.3 cm LVOT Diameter 1.6 cm MV exc.(>10mm) cm Est.ejection fraction (50-75%) % DOPPLER: LVIT cm/sec A 111 cm/sec E 78.0 cm/sec LA cm/sec RVSP 32.3 mmHg LVOT 161 cm/sec AOP1/2T m/s Asc. Ao 197 cm/sec RVOT 74.0 cm/sec RA cm/sec PA 103 cm/sec AV Gradient Peak 16.0 mmHg AV Mean 6.9 mmHg AV Area 1.6 cm MV Gradient Peak 7.3 mmHg MV Mean 3.1 mmHg MV Area cm COMMENTS: Business Services Vice President: 1 PATIENCE BAIN[place]E Aquatics Specialist: 1 Dr. Shah TAPE# PACS Pericardial Effusion N DATE OF SERVICE: PROCEDURE: Echocardiogram. FINDINGS: 1. Left ventricular chamber size is within normal limits. Left ventricular systolic function is normal. Overall ejection fraction estimated at 55%. 2. Left atrium, right atrium, and right ventricular chamber sizes are within normal limits. 3. Valvular structures have normal structure and motion. ECHOCARDIOGRAM REPORT [id number] LAURY YANEZ 4. Doppler interrogation reveals no significant valvular insufficiency or stenosis. Pulmonary systolic pressure is estimated at 32 mmHg. 5. No evidence of pericardial effusion or left ventricular thrombus. TRANSINT:[id number] Voice Confirmation ID: [id number] DOCUMENT ID: [id number] FLAVIA SHAH MD at 1110 CC: [id number] DICTATION DATE: 06/13/19941 SHAPER HAND: 06/13/19 1050 DIS IN 06/13/19 [facility] [address] [place] [address]
== END 2019-06-13 15:43 | disposition home or self-care (01) ==
LOC: D.ER 19:57 → D.MS 06-12 00:30 → OBSVTIME 06-12 00:30 → D.MS 06-13 15:43
PROVIDERS: Family Medicine; ADMIT Internal Medicine Nephrology; ATTEND Internal Medicine Nephrology
DX: G45.9 Transient cerebral ischemic attack, unspecified (principal); F03.90 Unspecified dementia, unspecified severity, without behavioral disturbance, psychotic disturbance, mood disturbance, and anxiety; E03.9 Hypothyroidism, unspecified; M19.90 Unspecified osteoarthritis, unspecified site; K80.20 Calculus of gallbladder without cholecystitis without obstruction; D64.9 Anemia, unspecified; D72.829 Elevated white blood cell count, unspecified

== ENCOUNTER 2019-06-26 08:18 | Inpatient (IN) | payer MEDICARE, BC ==
[~2019-06-26] VITALS: Ht 154.9 cm; Wt 68.9 kg
[2019-06-26] VITALS (24 sets, daily range): BP systolic 90–140; BP diastolic 47–106; BMI 28.1
[~2019-06-26 08:18] MED LIST changes: +ALEVE220 MG PO; +ARMOUR THYROID30 MG PO; +LOVASTATIN20 MG PO; +SULFAMETHOXAZOL1 TA2 PO
[2019-06-26 08:53] LABS: HEMATOCRIT 24.2 % (36.0-48.0); HEMOGLOBIN 7.8 g/dL (12-16); MCH 31.3 pg (26.0-34.0); MCHC 32.2 g/dL (31.0-37.0); MCV 97.2 fL (80.0-100.0); MEAN PLATELET VOLUME 10.7 fL (7.4-10.4); RBC 2.49 10x6/uL (4.00-5.40); RDW 14.4 % (11.5-14.5); WBC 16.4 10x3/uL (4.8-10.8)
[2019-06-26 09:02] LABS: ANION GAP 14.7 mmol/L (8-16); CALCIUM 8.7 mg/dL (8.5-10.1); CARBON DIOXIDE 27.3 mmol/L (21.0-32.0); CREATININE - SERUM 0.8 mg/dL (0.6-1.3)
[2019-06-26 09:03] LABS: PLATELET COUNT 276 10x3/uL (130-400)
[2019-06-26 09:08] LABS: APTT 22.2 SECONDS (22.8-39.4); BILIRUBIN - TOTAL 0.26 mg/dL (0.2-1.3); INR 1.12 (0.85-1.17); PROTEIN - SERUM 5.8 g/dL (6.4-8.2); PROTIME 13.9 SECONDS (11.6-15.0)
--- NOTE | 2019-06-26 09:12 | NUR ---
OCCULT BLOOD STOOL SAMPLE POSITIVE. EDP NOTIFIED.
--- NOTE | 2019-06-26 09:12 | NUR ---
PERINEAL CARE PERFORMED BY ED NURSE X2, PT'S SOILED BRIEF CONTAINED A LARGE SOLD BM THAT WAS DARK BROWN/BLACK IN COLOR. LINENS CHANGED AND PT REPOSITIONED FOR COMFORT. EXTERNAL URINE CONTAINMENT DEVICE IN PLACE AND ATTACHED TO LOW SUCTION, PERMITTED PER EDP VERBAL ORDER. PT VOICED HER APPROVAL PRIOR TO PLACEMENT.
[2019-06-26 10:18] LABS: EOSINOPHILS 1 % (0-7); LYMPHOCYTES 13 % (15-50); MONOCYTES 9 % (2-11); NEUTROPHILS 76 % (40-80); PLATELET ESTIMATE NORMAL
--- NOTE | 2019-06-26 10:45 | NUR ---
PT RECEIVED TO ROOM 2308 FROM ER. PT ALERT TO SELF, PLACE, AND SITUATION. 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 HEAD TO TOE ASSESSMENT COMPLETED. ADMISSION HISTORY AND HOME MEDS REVIEWED. VSS. CONSENT OBTAINED FOR EGD WITH TIVA. IV TO RIGHT HAND AND TO LEFT FOREARM. PT NPO. WILL CONTINUE TO MONITOR.
--- NOTE | 2019-06-26 13:09 | NUR ---
RADIOLOGY IN TO DO CHEST XRAY. BLOOD BANK SAID UNIT OF BLOOD WOULD BE READY SOON. VSS. WILL CONTINUE TO MONITOR.
[2019-06-26 13:11] LABS: % SATURATION 44 % (15-55); IRON 110 ug/dl (35-150); TOTAL IRON BIND CAPACITY 247 ug/dl (260-445); UNSAT IRON BIND CAPACITY 137 ug/dl (150-375)
[2019-06-26 13:12] LABS: FERRITIN 91 ng/mL (3-244)
--- NOTE | 2019-06-26 13:30 | NUR ---
INITIATED 1 UNIT OF PRBC. VSS. DOCUMENTED ON BLOOD ADMINISTRATION FLOWSHEET. EDUCATED PT AND FAMILY MEMBER AT BEDSIDE ABOUT SIGNS AND SYMPTOMS TO REPORT WHILE PT IS RECEIVING BLOOD. VERBALIZED UNDERSTANDING. WILL CONTINUE TO MONITOR.
--- NOTE | 2019-06-26 15:55 | NUR ---
PT DONE WITH EGD. RESTING QUIETLY. ON O2 AT 3L. VSS.
--- NOTE | 2019-06-26 17:26 | NUR ---
PT ALERT AND ABLE TO DRINK THIN LIQUIDS. ABLE TO TAKE ORAL MEDICATIONS. FAMILY AT BEDSIDE. VSS. WILL CONTINUE TO MONITOR.
--- NOTE | 2019-06-26 19:00 | NUR ---
REPORT REC'D, PT'S CARE ASSUMED. ASSESSMEMT COMPLETED PER FLOWSHEETS. PT AWAKE AND ALERT TO NAME AND PLACE, REORIENTED TO TIME AND SITUATION. DENIES ANY DISCOMFORT. SR ON CM WITH HR AT 92BPM, LUNG SOUNDS CLEAR TO ULB, UNLABORED ON 3L VIA NC. PPP. CALL LIGHT IN REACH. WILL CONT TO MONITOR.
--- NOTE | 2019-06-26 20:50 | NUR ---
CAREGIVER AT BEDSIDE. UPDATED. SCHEDULED MEDS GIVEN WITHOUT DIFFIC. PT VALERIA WELL. VSS. CPOC.
--- NOTE | 2019-06-26 23:00 | NUR ---
REASSSESSMENT COMPLETED PER FLOWSHEETS. NO ACUTE SIGNS OF DISTRESS NOTED. NO NEEDS VOICES. VSS. REPOSITIONED FOR COMFORT. CALL LIGHT IN REACH. CPOC.
[2019-06-27] VITALS (13 sets, daily range): BP systolic 99–143; BP diastolic 53–97; Ht 154.9 cm; Wt 68.9 kg
--- NOTE | 2019-06-27 01:00 | NUR ---
PT RESTING QUIETLY WITHOUT DISTRESS. VSS. CPOC.
[2019-06-27 02:47] LABS: BASOPHILS 0.2 % (0-2); EOSINOPHILS 0.7 % (0-7); HEMATOCRIT 24.7 % (36.0-48.0); HEMOGLOBIN 8.1 g/dL (12-16); IMMATURE GRANULOCYTES 0.2 % (0-5); LYMPHOCYTES 21.4 % (15-50); MCH 30.9 pg (26.0-34.0); MCHC 32.8 g/dL (31.0-37.0); MEAN PLATELET VOLUME 10.3 fL (7.4-10.4); MONOCYTES 7.2 % (2-11); NEUTROPHILS 70.3 % (40-80); RBC 2.62 10x6/uL (4.00-5.40); RDW 14.4 % (11.5-14.5)
[2019-06-27 02:51] LABS: MCV 94.3 fL (80.0-100.0); PLATELET COUNT 195 10x3/uL (130-400); WBC 8.2 10x3/uL (4.8-10.8)
--- NOTE | 2019-06-27 03:00 | NUR ---
REASSESSMENT COMPLETED PER FLOWSHEETS. NO ACUTE CHANGES IN PT'S STATUS NOTED. VSS./ REPOSITIONED FOR COMFORT. CPOC.
[2019-06-27 03:04] LABS: CALC OSMOLALITY 289 mosm/kg (275-300); CALCIUM 7.8 mg/dL (8.5-10.1); CHLORIDE - SERUM 110 mmol/L (98-107); CREATININE - SERUM 0.7 mg/dL (0.6-1.3); GLUCOSE 101 mg/dL (74-106); POTASSIUM - SERUM 3.7 mmol/L (3.5-5.1); SODIUM 143 mmol/L (136-145); UREA NITROGEN 26 mg/dL (7-18); eGFR NON AFRICAN AMERICAN 85 mL/min (90-120)
--- NOTE | 2019-06-27 04:30 | NUR ---
PT INCONTINENT OF URINE, CECILIA CARE PROVIDED, LINEN AND GOWN CHANGED. REPOSITIONED FOR COMFORT. HOB UP. SIDE RAILS UPX2, PT VALERIA WELL. CPOC.
--- NOTE | 2019-06-27 07:44 | NUR ---
CL BREAKFAST TRAY PROVIDED. PT FEEDING SELF. DENIES PAIN.
--- NOTE | 2019-06-27 10:50 | NUR ---
ASSISTED OOB TO CHAIR. CHG BATH COMPLETED AND PT SAT UP IN CHAIR. FAMILY AT BS.
--- NOTE | 2019-06-27 13:18 | NUR ---
PT INC OF URINE. CLEANED AND CHAIR LINENS CHANGED. FAMILY AT BS.
[2019-06-27 15:09] LABS: APPEARANCE CLEAR (CLEAR); BILIRUBIN NEGATIVE (NEGATIVE); COLOR YELLOW (YELLOW); GLUCOSE NEGATIVE (NEGATIVE); KETONE NEGATIVE (NEGATIVE); NITRITE NEGATIVE (NEGATIVE); PROTEIN NEGATIVE (NEGATIVE); SPECIFIC GRAVITY 1.015 (1.005-1.020); UROBILINOGEN NORMAL (NORMAL)
--- NOTE | 2019-06-27 15:45 | NUR ---
ASST PT TO BSC AND UA OBTAINED.
--- NOTE | 2019-06-27 16:48 | NUR ---
RECIEVED PT FROM ICU. PT HAS A L HAND PIV INFUSING NS @ 50 AND PROTONIX @ 10 AND ALSO HAS A RIGHT WRIST PIV THAT IS SL. PT IS A&O. RR EVEN AND UNLABORED. NO DISTRESS NOTED. BED LOCKED AND IN LOWEST POSITION, CALL LIGHT WITHIN REACH. WILL CTM
--- NOTE | 2019-06-27 19:30 | NUR ---
A&O X 4. DENIES PAIN. UP WITH ASSIST/1PERSON. PT HAD LARGE FORMED BM. DENIES NEEDS AT THIS TIME, FAMILY AT BEDSIDE, WILL CONTINUE TO MONITOR.
--- NOTE | 2019-06-27 20:17 | MORECARE ---
CASE MANAGEMENT DISCHARGE SUMMARY PATIENT: LAURY YANEZ UNIT: [id number] ADM DATE: 06/26/19 AGE: 79 : 38 SEX: F ROOM/BED: D.2231 AUTHOR: DARRELL OSULLIVAN PHYSICIAN: REFERRING PHYSICIAN: DANA VALDEZ MD DATE OF SERVICE: 06/27/19 Discharge Plan Patient Name: LAURY YANEZ [facility] [facility] 1940 Planned Disposition: Home Anticipated Discharge Date: Discharge Date: Expected LOS: Initial Reviewer: [email or web address] Initial Review Date: 06/27/2019 Generated: 06/27/19 9:16 pm Comments DCP- Discharge Planning Updated by [email or web address]: Diamond Borrero on 06/26/19 6:[address] CM attempted to see patient for d/c planning. GI team was setting up for bedside EGD. CM will come back at a later time to evaluate d/c needs. DCPIA - Discharge Planning Initial Assessment Updated by [email or web address]: Diamond Borrero on 06/27/19 8:16 pm * Is the patient Alert and Oriented? Yes * How many steps to enter\exit or inside your home? * PCP Pavan Pavon APRN * [facility] * Preadmission Environment Home with Family * ADLs Independent * Other Equipment WALKER, CANE * List name and contact numbers for known caregivers / representatives who currently or will assist patient after discharge: JIE SALAZAR [facility] [phone] * Verbal permission to speak to the caregivers and representatives has been obtained from the patient. Yes * Community resources currently utilized None * Additional services required to return to the preadmission environment? No * Can the patient safely return to the preadmission environment? Yes * Has this patient been hospitalized within the prior 30 days at any hospital? Yes Patient Name: LAURY YANEZ Page [phone] at 2017 All edits/amendments must be made on the electronic document DICTATION DATE: 06/27/192015 ELECTRIC ARC FURNACE OPERATOR: CARMELINA 06/27/19 2016 RPT#: [id number] DC DATE: STATUS: ADM IN [facility] [address] [place] [address] END OF REPORT
--- NOTE | 2019-06-27 20:29 | MORECARE ---
CASE MANAGEMENT DISCHARGE SUMMARY PATIENT: LAURY YANEZ UNIT: [id number] ADM DATE: 06/26/19 AGE: 79 : 38 SEX: F ROOM/BED: D.2231 AUTHOR: SHIDOC PHYSICIAN: REFERRING PHYSICIAN: DANA VALDEZ MD DATE OF SERVICE: 06/27/19 Discharge Plan Patient Name: LAURY YANEZ Facility: [facility]:[place] : 1940 Planned Disposition: Home Anticipated Discharge Date: Discharge Date: Expected LOS: Initial Reviewer: [email or web address] Initial Review Date: 06/27/2019 Generated: 06/27/19 9:29 pm Comments DCP- Discharge Planning Updated by [email or web address]: Diamond Borrero on 06/27/19 7:[address] Patient Name: LAURY YANEZ Admission Status: ER Accout number: [id number] Admission Date: 06-26-2019 : 1940 Admission Diagnosis: Attending: DANA VALDEZ Current LOS: 1 Anticipated DC Date: Planned Disposition: Home Primary Insurance: MEDICARE A & B Discharge Planning Comments: CM met with patient to complete initial dc planning assessment. CM educated patient on the CM role and verbal consent given by patient to complete assessment. Patient lives at home with her sister where she is independent with her care. At discharge patient plans to return home and feels this is a safe discharge. CM discussed availability of home health, rehab services, and medical equipment. Her sister will be her fire truck driver home. Patient is requesting a BSC upon discharge Patient denied known discharge needs at this time. CM will continue to follow and will assist as needed with dc plans/needs. Paper Ruler: Diamond Borrero DCP- Discharge Planning Updated by [email or web address]: Diamond Borrero on 06/26/19 6:[address] CM attempted to see patient for d/c planning. GI team was setting up for bedside EGD. CM will come back at a later time to evaluate d/c needs. DCPIA - Discharge Planning Initial Assessment Updated by [email or web address]: Diamond Borrero on 06/27/19 8:16 pm * Is the patient Alert and Oriented? Yes * How many steps to enter\exit or inside your home? * PCP Pavan Pavon APRN * [facility] * Preadmission Environment Home with Family * ADLs Independent * Other Equipment WALKER, CANE * List name and contact numbers for known caregivers / representatives who currently or will assist patient after discharge: JIE ESPARZA - [phone] * Verbal permission to speak to the caregivers and representatives has been obtained from the patient. Yes * Community resources currently utilized None * Additional services required to return to the preadmission environment? No * Can the patient safely return to the preadmission environment? Yes * Has this patient been hospitalized within the prior 30 days at any hospital? Yes Last DP export: 06/27/19 7:17 Patient Name: LAURY YANEZ Page [phone] at 2028 All edits/amendments must be made on the electronic document DICTATION DATE: 06/27/192028 COMPLIANCE REVIEWER: CARMELINA 06/27/192028 RPT#: [id number] DC DATE: STATUS: ADM IN [facility] [address] [place] [address] END OF REPORT
--- NOTE | 2019-06-27 20:36 | MORECARE ---
CASE MANAGEMENT DISCHARGE SUMMARY PATIENT: LAURY YANEZ UNIT: [id number] ADM DATE: 06/26/19 AGE: 79 : 38 SEX: F ROOM/BED: D.2231 AUTHOR: SHIDOC PHYSICIAN: REFERRING PHYSICIAN: DANA VALDEZ MD DATE OF SERVICE: 06/27/19 Discharge Plan Patient Name: LAURY YANEZ Facility: [facility]:[place] : 1940 Planned Disposition: Home Anticipated Discharge Date: Discharge Date: Expected LOS: Initial Reviewer: [email or web address] Initial Review Date: 06/27/2019 Generated: 06/27/19 9:35 pm Comments DCP- Discharge Planning Updated by [email or web address]: Diamond Borrero on 06/27/19 7:[address] Patient Name: LAURY YANEZ Admission Status: ER Accout number: [id number] Admission Date: 06-26-2019 : 1940 Admission Diagnosis: Attending: DANA VALDEZ Current LOS: 1 Anticipated DC Date: Planned Disposition: Home Primary Insurance: MEDICARE A & B Discharge Planning Comments: CM met with patient to complete initial dc planning assessment. CM educated patient on the CM role and verbal consent given by patient to complete assessment. Patient lives at home with her sister where she is independent with her care. At discharge patient plans to return home and feels this is a safe discharge. CM discussed availability of home health, rehab services, and medical equipment. Her sister will be her local intermodal truck driver home. Patient is requesting a BSC upon discharge Patient denied known discharge needs at this time. CM will continue to follow and will assist as needed with dc plans/needs. Can Line Operator: Diamond Borrero DCP- Discharge Planning Updated by [email or web address]: Diamond Borrero on 06/26/19 6:[address] CM attempted to see patient for d/c planning. GI team was setting up for bedside EGD. CM will come back at a later time to evaluate d/c needs. DCPIA - Discharge Planning Initial Assessment Updated by [email or web address]: Diamond Borrero on 06/27/19 8:16 pm * Is the patient Alert and Oriented? Yes * How many steps to enter\exit or inside your home? * PCP Pavan Pavon APRN * [facility] * Preadmission Environment Home with Family * ADLs Independent * Other Equipment WALKER, CANE * List name and contact numbers for known caregivers / representatives who currently or will assist patient after discharge: JIE ESPARZA - [phone] * Verbal permission to speak to the caregivers and representatives has been obtained from the patient. Yes * Community resources currently utilized None * Additional services required to return to the preadmission environment? No * Can the patient safely return to the preadmission environment? Yes * Has this patient been hospitalized within the prior 30 days at any hospital? Yes Last DP export: 06/27/19 7:29 Patient Name: LAURY YANEZ Page [phone] at 2036 All edits/amendments must be made on the electronic document DICTATION DATE: 06/27/192034 MANAGER TRANSIT: CARMELINA 06/27/192034 RPT#: [id number] DC DATE: STATUS: ADM IN [facility] [address] [place] [address] END OF REPORT
[2019-06-28] VITALS (7 sets, daily range): BP systolic 106–172; BP diastolic 50–78
--- NOTE | 2019-06-28 03:06 | NUR ---
I have reviewed this patient and I concur with the Shift Assessment completed by the Licensed Practical Nurse today this shift.
[2019-06-28 05:22] LABS: BASOPHILS 0.3 % (0-2); EOSINOPHILS 2.6 % (0-7); HEMATOCRIT 25.4 % (36.0-48.0); HEMOGLOBIN 8.2 g/dL (12-16); IMMATURE GRANULOCYTES 0.5 % (0-5); LYMPHOCYTES 16.4 % (15-50); MCH 31.1 pg (26.0-34.0); MCHC 32.3 g/dL (31.0-37.0); MCV 96.2 fL (80.0-100.0); MONOCYTES 7.5 % (2-11); NEUTROPHILS 72.7 % (40-80); PLATELET COUNT 214 10x3/uL (130-400); RBC 2.64 10x6/uL (4.00-5.40); RDW 15.3 % (11.5-14.5); WBC 6.6 10x3/uL (4.8-10.8)
[2019-06-28 05:47] LABS: CALC OSMOLALITY 281 mosm/kg (275-300); CALCIUM 8.1 mg/dL (8.5-10.1); CHLORIDE - SERUM 111 mmol/L (98-107); CREATININE - SERUM 0.6 mg/dL (0.6-1.3); GLUCOSE 94 mg/dL (74-106); POTASSIUM - SERUM 3.5 mmol/L (3.5-5.1); SODIUM 142 mmol/L (136-145); eGFR NON AFRICAN AMERICAN > 90 mL/min (90-120)
[2019-06-28 05:53] LABS: UREA NITROGEN 11 mg/dL (7-18)
--- NOTE | 2019-06-28 10:33 | NUR ---
FAMILY IN ROOM. PATIENT ASSISTED TO BEDSIDE COMMODE. CL IN REACH. NO FURTHER NEEDS AT THIS TIME.
--- NOTE | 2019-06-28 18:15 | NUR ---
PATIENT BACK TO BED. FAMILY IN ROOM. CL IN REACH. TM
--- NOTE | 2019-06-28 19:44 | NUR ---
PATIENT RESTING IN BED WITH FAMILY AT BEDSIDE. NO S/S OF DISTRESS. PATIENT AND FAMILY DENY NEEDS AT THIS TIME. ANGELA IN LOWEST POSITION AND CALL LIGHT WITHIN REACH. ENCOURAGED THE PATIENT TO CALL IF SHE HAS NEEDS. WILL CONTINUE TO MONITOR.
[2019-06-29] VITALS: BP 132/48
[2019-06-29 04:00] VITALS: BP 148/72
[2019-06-29 05:20] LABS: BASOPHILS 0.2 % (0-2); HEMATOCRIT 25.1 % (36.0-48.0); HEMOGLOBIN 8.1 g/dL (12-16); IMMATURE GRANULOCYTES 0.2 % (0-5); LYMPHOCYTES 12.9 % (15-50); MCH 31.5 pg (26.0-34.0); MCHC 32.3 g/dL (31.0-37.0); MCV 97.7 fL (80.0-100.0); MEAN PLATELET VOLUME 9.8 fL (7.4-10.4); MONOCYTES 7.6 % (2-11); NEUTROPHILS 77.1 % (40-80); PLATELET COUNT 207 10x3/uL (130-400); RBC 2.57 10x6/uL (4.00-5.40); RDW 15.7 % (11.5-14.5); WBC 6.6 10x3/uL (4.8-10.8)
[2019-06-29 05:35] LABS: CALC OSMOLALITY 285 mosm/kg (275-300); CALCIUM 8.3 mg/dL (8.5-10.1); CARBON DIOXIDE 28.7 mmol/L (21.0-32.0); CHLORIDE - SERUM 110 mmol/L (98-107); CREATININE - SERUM 0.7 mg/dL (0.6-1.3); GLUCOSE 102 mg/dL (74-106); POTASSIUM - SERUM 3.7 mmol/L (3.5-5.1); SODIUM 144 mmol/L (136-145); UREA NITROGEN 9 mg/dL (7-18); eGFR NON AFRICAN AMERICAN 85 mL/min (90-120)
[2019-06-29 08:25] VITALS: BP 155/68
--- NOTE | 2019-06-29 09:46 | NUR ---
ALERT WITH PLEASTLY CONFUSED NOTED WITH FAMILY PRESENT. LUNGS CTA WITH HRRR WITH MURMUR NOTED. O2 2L N/C WITH CAP REFILL < 3 SEC. NO PERIPHERAL EDEMA NOTED INSTRUCTED NEED FOR STOOL SPECEMIN . DENIES ANY PAIN OR DISCOMFORT AT THIS TIME AND ENCOURAGED TO USE CALL LIGHT FOR ASSIST.
[2019-06-29 12:07] VITALS: BP 150/62
[2019-06-29 16:56] VITALS: BP 162/51
[2019-06-29 19:35] LABS: HEMATOCRIT 26.1 % (36.0-48.0); HEMOGLOBIN 8.3 g/dL (12-16); MCH 31.7 pg (26.0-34.0); MCHC 31.8 g/dL (31.0-37.0); MCV 99.6 fL (80.0-100.0); MEAN PLATELET VOLUME 10.3 fL (7.4-10.4); RBC 2.62 10x6/uL (4.00-5.40); RDW 16.1 % (11.5-14.5); WBC 5.9 10x3/uL (4.8-10.8)
[2019-06-29 19:43] LABS: APTT 24.6 SECONDS (22.8-39.4); INR 1.04 (0.85-1.17); PROTIME 13.1 SECONDS (11.6-15.0)
[2019-06-29 20:00] VITALS: BP 153/62
--- NOTE | 2019-06-29 21:22 | NUR ---
INITIATED HEPARIN DRIP PER PROTOCOL. EXPLAINED SCD'S AND PUT ON PT. ASSESSMENT PER FLOW-SHEET. NO OTHER NEEDS. WILL CONTINUE TO MONITOR.
[2019-06-30 04:00] VITALS: BP 153/63
[2019-06-30 04:48] LABS: BASOPHILS 0.4 % (0-2); EOSINOPHILS 1.9 % (0-7); HEMATOCRIT 25.5 % (36.0-48.0); HEMOGLOBIN 8.1 g/dL (12-16); IMMATURE GRANULOCYTES 0.2 % (0-5); LYMPHOCYTES 12.3 % (15-50); MCH 31.3 pg (26.0-34.0); MCHC 31.8 g/dL (31.0-37.0); MCV 98.5 fL (80.0-100.0); MEAN PLATELET VOLUME 11.2 fL (7.4-10.4); MONOCYTES 5.5 % (2-11); NEUTROPHILS 79.7 % (40-80); PLATELET COUNT 221 10x3/uL (130-400); RBC 2.59 10x6/uL (4.00-5.40); WBC 5.3 10x3/uL (4.8-10.8)
[2019-06-30 05:12] LABS: CALC OSMOLALITY 279 mosm/kg (275-300); CALCIUM 8.1 mg/dL (8.5-10.1); CARBON DIOXIDE 27.3 mmol/L (21.0-32.0); CHLORIDE - SERUM 106 mmol/L (98-107); CREATININE - SERUM 0.6 mg/dL (0.6-1.3); GLUCOSE 104 mg/dL (74-106); POTASSIUM - SERUM 3.2 mmol/L (3.5-5.1); SODIUM 141 mmol/L (136-145); UREA NITROGEN 9 mg/dL (7-18); eGFR NON AFRICAN AMERICAN > 90 mL/min (90-120)
[2019-06-30 08:48] VITALS: BP 146/69
--- NOTE | 2019-06-30 09:00 | NUR ---
ASSESSMENT PER FLOW SHEET. PT IS WITHOUT DISTRESS.FAMILY AT BEDSIDE.FALL PREVENTION IN PLACE.MONITOR
--- NOTE | 2019-06-30 13:05 | NUR ---
Nutrition follow-up: Diet: REgular as tolerated PO intake ~85% average of last 6 meals Daughter reports pts appetite better here than at home Labs reviewed Wt: 151# RDN following.
[2019-06-30 13:30] VITALS: BP 141/53
[2019-06-30 16:51] VITALS: BP 119/73
--- NOTE | 2019-06-30 19:40 | NUR ---
LYING IN BED WITH EYES CLOSED. AWAKENED FOR ASSESSMENT. SLOW TO RESPOND TO QUESTIONS. DENIES PAIN. RESP SHALLOW. NONLABORED. O2 @ 2L/NC. PUREWICK CATHETER IN PLACE AND DRAINING CLEAR YELLOW URINE TO SUCTION CANISTER. BRUISES NOTED TO BUE. NS @ 30 MLHR INFUSING IN RT HAND AND HEPARIN DRIP INFUSING @ 700 UNITS/HR IN RT FOREARM WITHOUT DIFF. NO S/S OF BLEEDING. SCDS IN USE BILAT. FAMILY AT BEDSIDE. SR ELEVATED X2. CL IN REACH. BED ALARM ON FOR PT SAFETY.
--- NOTE | 2019-06-30 19:47 | NUR ---
HAS SET IN CHAIR FOR 3 PLUS HOURS TODAY. SHE IS WITHOUT DISTRESS. REMAINS WITHOUT CHNAGE.CONT PLAN OF CARE
[2019-06-30 20:00] VITALS: BP 129/68
--- NOTE | 2019-06-30 21:31 | NUR ---
PTT IS 86.7. NO CHANGE TO DRIP. NEW BAG HUNG AT THIS TIME. JASKARAN NICK WITNESSED. HEPARIN INFUSING @ 700 UNITS/HR. REDRAW APTT IN AM.
--- NOTE | 2019-07-01 03:34 | NUR ---
INCONT OF BOWELS. STOOL SPECIMEN FOR HPYLORI COLLECTED AT THIS TIME. PERICARE PERFORMED. NEW PUREWICK CATH APPLIED.
[2019-07-01 06:56] LABS: BASOPHILS 0.3 % (0-2); EOSINOPHILS 3.9 % (0-7); HEMATOCRIT 29.4 % (36.0-48.0); IMMATURE GRANULOCYTES 0.1 % (0-5); LYMPHOCYTES 12.4 % (15-50); MCH 30.6 pg (26.0-34.0); MCHC 30.6 g/dL (31.0-37.0); MEAN PLATELET VOLUME 11.4 fL (7.4-10.4); MONOCYTES 8.2 % (2-11); NEUTROPHILS 75.1 % (40-80); PLATELET COUNT 250 10x3/uL (130-400); RBC 2.94 10x6/uL (4.00-5.40); RDW 16.3 % (11.5-14.5)
[2019-07-01 07:03] LABS: CALC OSMOLALITY 282 mosm/kg (275-300); CALCIUM 8.4 mg/dL (8.5-10.1); CHLORIDE - SERUM 108 mmol/L (98-107); CREATININE - SERUM 0.7 mg/dL (0.6-1.3); GLUCOSE 95 mg/dL (74-106); POTASSIUM - SERUM 3.6 mmol/L (3.5-5.1); SODIUM 142 mmol/L (136-145); eGFR NON AFRICAN AMERICAN 85 mL/min (90-120)
[2019-07-01 07:06] LABS: UREA NITROGEN 12 mg/dL (7-18)
--- NOTE | 2019-07-01 09:00 | NUR ---
ASSESSMENT PER FLOW SHEET. PT IS WITHOUT DISTRESS.CALL LIGHT IN REACH.
[2019-07-01 09:09] VITALS: BP 132/68
[2019-07-01] MEDS ORDERED: CARAFATE1 G PO (10:52)
[2019-07-01] MEDS ORDERED: COLACE100 MG PO (10:52)
[2019-07-01] MEDS ORDERED: ACETAMINOPHEN325 MG PO (10:52)
[2019-07-01] MEDS ORDERED: PROTONIX40 MG PO (10:52)
[2019-07-01] MEDS ORDERED: HEPARIN SOD5000 U/ML IV (10:53)
[2019-07-01] MEDS ORDERED: HEPARIN 2525 K U/250 IV (12:29)
[2019-07-01 12:53] VITALS: BP 120/66
--- NOTE | 2019-07-01 13:12 | NUR ---
REPORT TO [facility] ON REHAB
--- NOTE | 2019-07-01 13:16 | MORECARE ---
CASE MANAGEMENT DISCHARGE SUMMARY PATIENT: LAURY YANEZ UNIT: [id number] ADM DATE: 06/26/19 AGE: 79 : 38 SEX: F ROOM/BED: D.2231 AUTHOR: DARRELL OSULLIVAN PHYSICIAN: REFERRING PHYSICIAN: DANA VALDEZ MD DATE OF SERVICE: 07/01/19 Discharge Plan Patient Name: LAURY YANEZ Facility: [facility]:[place] : 1940 Planned Disposition: Home Anticipated Discharge Date: Discharge Date: Expected LOS: Initial Reviewer: [email or web address] Initial Review Date: 06/27/2019 Generated: 07/01/19 2:15 pm Comments DCP- Discharge Planning Updated by [email or web address]: Felicia Bhatia on 07/01/19 12:[address] Patient Name: LAURY YANEZ Encounter No: [id number] : 1940 Primary Insurance: MEDICARE A & B Anticipated DC Date: Planned Disposition: Home External Planned Provider: : DCP follow-up note: Patient and family in agreement with discharge plan. No changes to plan. Discharging today to inpatient rehab. Case management will follow and assist as needed. Felicia Bhatia DCP- Discharge Planning Updated by [email or web address]: Diamond Borrero on 06/27/19 7:[address] Patient Name: LAURY YANEZ Admission Status: ER Accout number: [id number] Admission Date: 06-26-2019 : 1940 Admission Diagnosis: Attending: DANA VALDEZ Current LOS: 1 Anticipated DC Date: Planned Disposition: Home Primary Insurance: MEDICARE A & B Discharge Planning Comments: CM met with patient to complete initial dc planning assessment. CM educated patient on the CM role and verbal consent given by patient to complete assessment. Patient lives at home with her sister where she is independent with her care. At discharge patient plans to return home and feels this is a safe discharge. CM discussed availability of home health, rehab services, and medical equipment. Her sister will be her cattle driver home. Patient is requesting a BSC upon discharge Patient denied known discharge needs at this time. CM will continue to follow and will assist as needed with dc plans/needs. Manager Continuous Improvement: Diamond Borrero DCP- Discharge Planning Updated by [email or web address]: Diamond Borrero on 06/26/19 6:[address] CM attempted to see patient for d/c planning. GI team was setting up for bedside EGD. CM will come back at a later time to evaluate d/c needs. DCPIA - Discharge Planning Initial Assessment Updated by [email or web address]: Diamond Borrero on 06/27/19 8:16 pm * Is the patient Alert and Oriented? Yes * How many steps to enter\exit or inside your home? * PCP Pavan Pavon APRN * [facility] * Preadmission Environment Home with Family * ADLs Independent * Other Equipment WALKER, CANE * List name and contact numbers for known caregivers / representatives who currently or will assist patient after discharge: JIE SALAZAR [facility] [phone] * Verbal permission to speak to the caregivers and representatives has been obtained from the patient. Yes * Community resources currently utilized None * Additional services required to return to the preadmission environment? No * Can the patient safely return to the preadmission environment? Yes * Has this patient been hospitalized within the prior 30 days at any hospital? Yes Coverage Notice Reviewer: [email or web address] Alba Bhatia Notice Issued Date-Time: 07/01/2019 13:06 Notice Type: IM Discharge Notice Notice Delivered To: Patient Relationship to Patient: Self Check Writer Salesperson Name: Delivery Method: HAND - Hand Delivered Jane Days: Prior Verbal Notification: Recipient Understood Notice: Yes Recipient Signature: Yes Med Rec Note Co-signed by Attending: Coverage Notice Comment: IMM explained, signed, given, copy placed in MR Last DP export: 06/27/19 7:36 Patient Name: LAURY YANEZ Page [phone] at 1316 All edits/amendments must be made on the electronic document DICTATION DATE: 07/01/191314 FILM PROCESSING SUPERVISOR: CARMELINA 07/01/191314 RPT#: [id number] DC DATE: STATUS: ADM IN [facility] [address] [place] [address] END OF REPORT
--- NOTE | 2019-07-01 13:50 | NUR ---
DISCHARGE INSTRUCTIONS,STATES UNDERSTANDING.PT WILL DC TO REHAB
--- NOTE | 2019-07-01 14:03 | NUR ---
TO REHAB VIA WHEELCHAIR
--- NOTE | 2019-07-04 15:59 | MORECARE ---
CASE MANAGEMENT DISCHARGE SUMMARY PATIENT: LAURY YANEZ UNIT: [id number] ADM DATE: 06/26/19 AGE: 79 : 38 SEX: F ROOM/BED: D.2231 AUTHOR: DARRELL OSULLIVAN PHYSICIAN: REFERRING PHYSICIAN: DANA VALDEZ MD DATE OF SERVICE: 07/04/19 Discharge Plan Patient Name: LAURY YANEZ Facility: [facility]:[place] : 1940 Planned Disposition: Home Anticipated Discharge Date: Discharge Date: 07/01/2019 Expected LOS: 0 Initial Reviewer: [email or web address] Initial Review Date: 06/27/2019 Generated: 07/04/19 4:58 pm Comments DCP- Discharge Planning Updated by [email or web address]: Felicia Bhatia on 07/01/19 12:[address] Patient Name: LAURY YANEZ Encounter No: [id number] : 1940 Primary Insurance: MEDICARE A & B Anticipated DC Date: Planned Disposition: Home External Planned Provider: : DCP follow-up note: Patient and family in agreement with discharge plan. No changes to plan. Discharging today to inpatient rehab. Case management will follow and assist as needed. Felicia Bhatia DCP- Discharge Planning Updated by [email or web address]: Diamond Borrero on 06/27/19 7:[address] Patient Name: LAURY YANEZ Admission Status: ER Accout number: [id number] Admission Date: 06-26-2019 : 1940 Admission Diagnosis: Attending: DANA VALDEZ Current LOS: 1 Anticipated DC Date: Planned Disposition: Home Primary Insurance: MEDICARE A & B Discharge Planning Comments: CM met with patient to complete initial dc planning assessment. CM educated patient on the CM role and verbal consent given by patient to complete assessment. Patient lives at home with her sister where she is independent with her care. At discharge patient plans to return home and feels this is a safe discharge. CM discussed availability of home health, rehab services, and medical equipment. Her sister will be her shuttle driver home. Patient is requesting a BSC upon discharge Patient denied known discharge needs at this time. CM will continue to follow and will assist as needed with dc plans/needs. Jig Filler: Diamond Borrero DCP- Discharge Planning Updated by [email or web address]: Diamond Borrero on 06/26/19 6:[address] CM attempted to see patient for d/c planning. GI team was setting up for bedside EGD. CM will come back at a later time to evaluate d/c needs. DCPIA - Discharge Planning Initial Assessment Updated by [email or web address]: Diamond Borrero on 06/27/19 8:16 pm * Is the patient Alert and Oriented? Yes * How many steps to enter\exit or inside your home? * PCP Pavan Pavon APRN * Pharmacy [facility] * Preadmission Environment Home with Family * ADLs Independent * Other Equipment WALKER, CANE * List name and contact numbers for known caregivers / representatives who currently or will assist patient after discharge: [facility] [phone] * Verbal permission to speak to the caregivers and representatives has been obtained from the patient. Yes * Community resources currently utilized None * Additional services required to return to the preadmission environment? No * Can the patient safely return to the preadmission environment? Yes * Has this patient been hospitalized within the prior 30 days at any hospital? Yes Coverage Notice Reviewer: [email or web address] Alba Bhatia Notice Issued Date-Time: 07/01/2019 13:06 Notice Type: IM Discharge Notice Notice Delivered To: Patient Relationship to Patient: Self Gate Supervisor Name: Delivery Method: HAND - Hand Delivered Jane Days: Prior Verbal Notification: Recipient Understood Notice: Yes Recipient Signature: Yes Med Rec Note Co-signed by Attending: Coverage Notice Comment: IMM explained, signed, given, copy placed in MR Last DP export: 07/01/19 12:16 Patient Name: LAURY YANEZ Page [phone] at 1559 All edits/amendments must be made on the electronic document DICTATION DATE: 07/04/191557 SINGLE NEEDLE OPERATOR: CARMELINA 07/04/191557 RPT#: [id number] DC DATE:07/01/19 STATUS: DIS IN [address] [place] [address] END OF REPORT
== END 2019-07-01 14:04 | DRG 377 ==
LOC: D.ER 08:18 → D.ICU 09:51 → D.MS 06-27 16:18
PROVIDERS: Family Medicine; Internal Medicine Gastroenterology; ADMIT Internal Medicine Nephrology; ATTEND Internal Medicine Nephrology
PROC: 0W3P8ZZ Control Bleeding in Gastrointestinal Tract, Via Natural or Artificial Opening Endoscopic (ICD-10-PCS; principal; 2019-06-26 15:30)
DX: K25.4 Chronic or unspecified gastric ulcer with hemorrhage (principal); I26.99 Other pulmonary embolism without acute cor pulmonale; D62 Acute posthemorrhagic anemia; N17.9 Acute kidney failure, unspecified; E44.0 Moderate protein-calorie malnutrition; E78.5 Hyperlipidemia, unspecified; E03.9 Hypothyroidism, unspecified; Z68.28 Body mass index [BMI] 28.0-28.9, adult; M19.90 Unspecified osteoarthritis, unspecified site; Z86.73 Personal history of transient ischemic attack (TIA), and cerebral infarction without residual deficits; F03.90 Unspecified dementia, unspecified severity, without behavioral disturbance, psychotic disturbance, mood disturbance, and anxiety; K21.0 Gastro-esophageal reflux disease with esophagitis; R09.02 Hypoxemia

== ENCOUNTER 2019-07-01 14:58 | Inpatient (IN) | payer MEDICARE, BC ==
[~2019-07-01] VITALS: Ht 154.9 cm; Wt 67.1 kg
[~2019-07-01 14:58] MED LIST changes: +ACETAMINOPHEN325 MG PO; +CARAFATE1 G PO; +COLACE100 MG PO; +HEPARIN 2525 K U/250 IV; +HEPARIN SOD5000 U/ML IV; +PROTONIX40 MG PO
[2019-07-01 17:02] VITALS: BP 122/54; BMI 28.0
--- NOTE | 2019-07-01 19:30 | NUR ---
PT LYIING IN BED. CL IN REACH. DENIES NEEDS AT THIS TIME. DAUGHTER IN ROOM. RESP EVEN AND UNLABORED. LUNGS CLEAR. BOWEL ACTIVE X4. A/O X4. 2L OF O2 ON VIA NC. WILL CONTINUE TO MONITOR.
[2019-07-01 21:05] VITALS: BP 147/62
--- NOTE | 2019-07-02 00:45 | NUR ---
I have reviewed this patient and I concur with the Shift Assessment completed by the Licensed Practical Nurse today this shift.
--- NOTE | 2019-07-02 03:00 | NUR ---
PT RESTING QUIETLY. CL IN REACH. NO DISTRESS NOTED. SISTER IN ROOM. WCTM
[2019-07-02 06:41] LABS: BASOPHILS 0.2 % (0-2); EOSINOPHILS 5.4 % (0-7); HEMATOCRIT 27.1 % (36.0-48.0); HEMOGLOBIN 8.4 g/dL (12-16); IMMATURE GRANULOCYTES 0.4 % (0-5); MCH 30.2 pg (26.0-34.0); MEAN PLATELET VOLUME 11.8 fL (7.4-10.4); MONOCYTES 10.5 % (2-11); NEUTROPHILS 60.5 % (40-80); RBC 2.78 10x6/uL (4.00-5.40); RDW 16.2 % (11.5-14.5); WBC 5.5 10x3/uL (4.8-10.8)
[2019-07-02 06:42] LABS: CALC OSMOLALITY 287 mosm/kg (275-300); CALCIUM 8.2 mg/dL (8.5-10.1); CARBON DIOXIDE 28.3 mmol/L (21.0-32.0); CHLORIDE - SERUM 112 mmol/L (98-107); CREATININE - SERUM 0.7 mg/dL (0.6-1.3); GLUCOSE 92 mg/dL (74-106); POTASSIUM - SERUM 3.7 mmol/L (3.5-5.1); SODIUM 145 mmol/L (136-145); UREA NITROGEN 11 mg/dL (7-18); eGFR NON AFRICAN AMERICAN 85 mL/min (90-120)
[2019-07-02 07:03] LABS: MCV 97.5 fL (80.0-100.0)
[2019-07-02 07:04] LABS: PLATELET COUNT 183 10x3/uL (130-400)
[2019-07-02 07:06] LABS: INR 1.07 (0.85-1.17); PROTIME 13.4 SECONDS (11.6-15.0)
--- NOTE | 2019-07-02 08:00 | NUR ---
SHIFT ASSMT COMPLETED.
[2019-07-02 08:16] VITALS: BP 134/76
[2019-07-02 14:58] VITALS: Ht 154.9 cm; Wt 67.1 kg
--- NOTE | 2019-07-02 16:00 | NUR ---
WILL CONT TO MONITOR.
--- NOTE | 2019-07-02 19:20 | NUR ---
PT SITTING UP IN BED. CL IN REACH. SISTER IN ROOM. DENIES NEEDS AT THIS TIME. BED IN LOW SIDE RAILS X2. RESP EVEN AND UNLABORED. A/O X3 CONFUSED WITH DATE. [place]. 2L OF O2 VIA NC. LUNGS CLEAR. BOWEL ACTIVE X4. WILL CONTINUE TO MONITOR.
[2019-07-02 21:20] VITALS: BP 111/61
--- NOTE | 2019-07-03 00:25 | NUR ---
ASSISTED TO AND FROM BATHROOM. BACK IN BED. CL IN REACH. DENIES FURTHER NEEDS. WCTM
--- NOTE | 2019-07-03 04:17 | NUR ---
QUIET HOURS. PT LYING IN BED SUPINE EYES CLOSED RESTING. FAMILY AT BEDSIDE NOTED. RR EVEN AND UNLABORED. CL IN REACH
--- NOTE | 2019-07-03 04:26 | NUR ---
I have reviewed this patient and I concur with the Shift Assessment completed by the Licensed Practical Nurse today this shift.
[2019-07-03 08:00] VITALS: BP 131/60
--- NOTE | 2019-07-03 08:00 | NUR ---
SHIFT ASSMT COMPLETED.
--- NOTE | 2019-07-03 15:11 | NUR ---
PATIENT ADMITTED TO REHAB FROM ACUTE FLOOR. HER PCP IS RAF RODAS APRN IN [facility]. DME AT HOME IS A WALKER AND A CANE. DISCHARGE PLANS ARE FOR HER TO RETURN HOME WITH HER SISTER WHICH IS HER WORM FARMER. WILL CONTINUE TO FOLLOW WITH PATIENT AND WILL ASSIST WITH HER NEEDS.
--- NOTE | 2019-07-03 16:00 | NUR ---
COTN TO MONITOR
[2019-07-03 19:22] VITALS: BP 111/56
--- NOTE | 2019-07-03 19:30 | NUR ---
ASSISTED TO AND FROM BATHROOM. DENIES FURTHER NEEDS. CL IN REACH. PT IN WHEELCHAIR. SISTER IN ROOM. RESP EVEN AND UNLABORED. LUNGS CLEAR. BOWEL ACTIVE X4. A/O X3. FORGETFUL OF DATE. WILL CONTINUE TO MONITOR.
--- NOTE | 2019-07-04 03:00 | NUR ---
PT RESTING QUIETLY. CL IN REACH. NO DISTRESS NOTED. WCTM SISTER IN ROOM.
--- NOTE | 2019-07-04 04:39 | NUR ---
I have reviewed this patient and I concur with the Shift Assessment completed by the Licensed Practical Nurse today this shift.
--- NOTE | 2019-07-04 07:30 | NUR ---
The patient is awake and alert, she is pleasant. She has her O2@2L/M on and she says she feels well. Her sister is at her bedside.
[2019-07-04 07:57] VITALS: BP 140/62
[2019-07-04 08:04] LABS: BASOPHILS 0.3 % (0-2); EOSINOPHILS 4.8 % (0-7); HEMATOCRIT 26.7 % (36.0-48.0); IMMATURE GRANULOCYTES 0.2 % (0-5); LYMPHOCYTES 20.2 % (15-50); MCH 30.3 pg (26.0-34.0); MCV 101.1 fL (80.0-100.0); MEAN PLATELET VOLUME 10.7 fL (7.4-10.4); MONOCYTES 9.2 % (2-11); NEUTROPHILS 65.3 % (40-80); RBC 2.64 10x6/uL (4.00-5.40); RDW 15.9 % (11.5-14.5); WBC 5.8 10x3/uL (4.8-10.8)
[2019-07-04 08:07] LABS: CALC OSMOLALITY 282 mosm/kg (275-300); CALCIUM 8.4 mg/dL (8.5-10.1); CARBON DIOXIDE 28.9 mmol/L (21.0-32.0); CHLORIDE - SERUM 108 mmol/L (98-107); CREATININE - SERUM 0.6 mg/dL (0.6-1.3); GLUCOSE 87 mg/dL (74-106); PLATELET COUNT 251 10x3/uL (130-400); POTASSIUM - SERUM 4.2 mmol/L (3.5-5.1); SODIUM 142 mmol/L (136-145); UREA NITROGEN 14 mg/dL (7-18); eGFR NON AFRICAN AMERICAN > 90 mL/min (90-120)
--- NOTE | 2019-07-04 09:47 | NUR ---
The patient is compliant with medications, she has a family member that assists her to the bathroom.
--- NOTE | 2019-07-04 12:30 | NUR ---
The patient is sitting in her room eating lunch, she is pleasant, and denies needs. Her family member asked if we could call in d/c meds. Spoke to Carla Sanz LPN that works on this unit and she states that without a d/c order we are unable to call the medications in to a pharmacy.
--- NOTE | 2019-07-04 12:39 | NUR ---
NUTRITION F//U CHART REVIEWED, PT VISIT. FAMILY AT BEDSIDE. PT TOLERATING REG DIET WITH GOOD INTAKE LUNCH TODAY. REPORTS GOOD APPETITE AND PO INTAKE. WILL CONTINUE TO HONOR FOOD PREFERENCES, MONITOR PO INTAKE. RD FOLLOWING
--- NOTE | 2019-07-04 13:48 | NUR ---
Spoke to the patient's sister about the d/c meds and calling them in to the pharmacy. Explained to her that [facility] are open on the weekend. She said she would like a few called over to [facility] tomorrow to get her through the weekend. Will let the next shift know.
--- NOTE | 2019-07-04 17:19 | NUR ---
The patient is sitting up in a w/c she denies needs, sister at bedside.
[2019-07-04 19:00] VITALS: BP 129/58
--- NOTE | 2019-07-04 19:09 | NUR ---
PT IS RESTING IN BED WITH EYES OPEN. ALERT AND ORIENTED X 3. DENIES ANY PAIN OR DISCOMFORT AT THIS TIME. NO NEEDS VOICED. SISTER IS STAYING IN ROOM WITH PT. SR'S ARE UP X 2 IN BED. CALL LIGHT AND BEDSIDE TABLE ARE WITHIN EASY REACH.
--- NOTE | 2019-07-04 21:08 | NUR ---
PT IS RESTING IN BED WITH EYES OPEN. NO NEEDS VOICED. SISTER AT BEDSIDE.
--- NOTE | 2019-07-05 00:01 | NUR ---
RESTING IN BED WITH EYES CLOSED.
--- NOTE | 2019-07-05 01:14 | NUR ---
I have reviewed this patient and I concur with the Shift Assessment completed by the Licensed Practical Nurse today this shift.
--- NOTE | 2019-07-05 05:10 | NUR ---
RESTING IN BED WITH EYES CLOSED.
[2019-07-05 07:46] VITALS: BP 146/66
[2019-07-05] MEDS ORDERED: ELIQUIS5 MG PO (09:09)
--- NOTE | 2019-07-05 09:51 | NUR ---
PT DISCHARGE FROM REHAB UNIT. PT UNDERSTAND DISCHARGE INSTRUCTIONS. SIGNED DISCHARGE PAPER, GO HOME WITH HER SITER.
--- NOTE | 2019-07-05 11:04 | NUR ---
MEDICATIONS CALLED IN TO [facility] ON [address].
--- NOTE | 2019-07-07 09:26 | NUR ---
LATE ENTRY FOR 07/05/19 PATIENT DISCHARGED HOME WITH FAMILY TODAY. [facility] WILL PROVIDE THERAPY AT HOME. NO NEW DME NEEDED AT THIS TIME. RAF RODAS APRN 07/10/19 @ 10:00, DR. RODRÍGUEZ OFFICE WILL CALL PATIENT WITH AN APPOINTMENT. PATIENT CHOICE FORM (HANDOUT GIVEN) AND IMFM FORMS SIGNED, COPY GIVEN TO PATIENT AND FILED IN CHART. DISCHARGE INSTRUCTIONS FAXED TO PCP, HOME HEALTH AND REVIEWED WITH PATIENT.
--- NOTE | 2019-07-14 10:01 | RHP ---
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 HISTORY OF PRESENT ILLNESS: The patient is an 79-year-old female patient presented to ED on 06/26/2019 with weakness. She had slid out of her bed the morning of her acute hospital admit. She had been having some dark tarry stools for several days and throwing up. She described them as a coffee-ground emesis. She was not on any blood thinner. She does have a history of Naprosyn use for arthritic pain. The patient was admitted to ICU for further evaluation and treatment for anemia and GI bleed. H&H upon admit was 7.8 and 24.2. She received packed red blood cells. She had a GI consult and underwent an EGD. She had a reflux-induced esophagitis. Multiple superficial antral ulcers with 1 deep ulcer that was likely the source of her bleeding. She had an epinephrine injection and gold probe cautery. She began having her O2 sats decreased. On 06/29/2019, she had a CTA, which showed a positive pulmonary embolus in the right upper lobe. GI was consulted and used anticoagulation therapy and she was started on heparin. She is currently on supplemental O2. She is on heparin drip, has been titrated per scale. She is monitoring closely for GI bleed. She is a high risk for bleeding on anticoagulation therapy, deconditioning, debility, weakness, dyspnea on exertion, impaired mobility, gait disturbance. She is a high fall risk and self-care deficits. These are barriers to her discharge home. Lives at home with her sister, was independent with mobility and ADLs, using a rolling walker. She is currently set up for mod assist for ADLs and mod assist for mobility and has ambulated 250 feet, but noted to fatigue easily and noted to have oxygen desaturations down in the 80s. She and her family plan for her return home at her prior level of function or better. The patient does need intensive PT and OT and speech therapy in order to return home and also work on transfers, gait coordination and balance, endurance, range of motion and use of assistive device and safety. OT will be working on her transfers, adaptive equipment and safety, and speech will be working her cognition and subsequent interaction. COMORBIDITIES: In this patient include GI bleed, anemia, hypoxia, pneumonia, dehydration, cholelithiasis, syncope, dementia, blood loss anemia, acute kidney injury, and history of TIA. PAST MEDICAL HISTORY: Significant for cataracts. She got a history of thyroid problems, cardiovascular problems, hyperlipidemia, pneumonia, diarrhea, musculoskeletal pain, and arthritis. PAST SURGICAL HISTORY: Includes hysterectomy. ALLERGIES: PENICILLIN. CURRENT MEDICATIONS: Include [place] Thyroid 30 mg daily, multivitamin daily, glucosamine and chondroitin sulfate 1 cap daily, omega 3 one cap daily, B12 500 mg daily, vitamin D 1000 units daily, Carafate 1 gram t.i.d. and q.a.c., HISTORY AND PHYSICAL [id number] LAURY YANEZ Protonix 40 mg b.i.d., Mevacor 20 mg at bedtime, Xalatan eyedrops. She is on Colace 100 mg b.i.d. She is on heparin. She is on a protocol for this. Tylenol 650 q.4 hours p.r.n., and polyethylene glycol 17 grams in 8 ounces of water daily. HABITS: No alcohol or tobacco use. FAMILY HISTORY: Noncontributory. SOCIAL HISTORY: The patient hopes to return back home and get back to her prior level of functioning, living with her sister. REVIEW OF SYSTEMS: GENERAL: Does complain of weakness and fatigue. HEENT: Denies cold, cough, or congestion. CARDIOVASCULAR: Denies chest pain. PHYSICAL EXAMINATION: VITAL SIGNS: Stable, afebrile. GENERAL: A well-developed female, in no acute distress, alert upon exam. HEENT: Normocephalic and atraumatic. Mucosa moist. NECK: Supple. No lymphadenopathy. LUNGS: Clear in upper espinal. No wheezing or rales. HEART: Regular rate and rhythm. She does have a murmur. ABDOMEN: Soft, benign, and nondistended. Positive bowel sounds times 4. EXTREMITIES: No clubbing, cyanosis or edema. NEUROLOGIC: Got pretty good strength of 4/5 in both of her lower extremities. LABORATORY DATA: White count is 5.5, H&H 8.4 and 27.1, and platelet count is noted to be 183. Her sodium is 145, potassium 3.7, BUN and creatinine of 11 and 0.7, blood sugar is noted to be 92. Her INR is 1.07. ASSESSMENT: This is an 79-year-old female patient admitted to rehab with a working diagnosis of encephalopathy secondary to a gastrointestinal bleed and prolonged hospitalization. The patient has potential to make improvement. We instituted the following multidisciplinary therapies including, but not limited to physical, occupational, respiratory, speech, nutritional services, prosthetics and orthotics. Given her complex medical condition and risk for more complications, rehabilitation services cannot be provided at a low level of care such a skilled nurse facility. PLAN: 1. Admit to [facility] for intensive inpatient therapy to include the following disciplines: A. Physical therapy to improve gait, all transfer skills and bed mobility to a modified independent level. B. Occupational therapy to improve activities of daily living to a modified independent level. C. Case management to assist with discharge planning and placement options. D. Nutrition to assist with nutritional needs. E. Rehabilitation nursing to assist in monitoring the patient's underlying medical conditions and to assist with any type of bowel or bladder management. 2. The patient's current medication will be continued. 3. We will kind of follow her closely, watch for any signs of bleeding, reconsult GI if necessary and I will see her again in the a.m. HISTORY AND PHYSICAL [id number] LAURY YANEZ TRANSINT:[id number] Voice Confirmation ID: [id number] DOCUMENT ID: [id number] NABOR notes whether there has been none or any medical/functional change since admission: - No change since prescreen. NABOR attests patient continues to be appropriate for IRF: - Continues to be appropriate. MARIA LUZ CARDENAS MD at 1001 CC: [id number] DICTATION DATE: 07/02/19 09 QUARTZ MOUNTER: 07/02/19 1032 DIS IN 07/05/19 [place] [address]
== END 2019-07-05 09:58 | disposition home health service (06) | DRG 70 ==
LOC: D.REHAB 14:58
PROVIDERS: ADMIT Emergency Medicine; ATTEND Emergency Medicine
DX: G93.40 Encephalopathy, unspecified (principal); J18.9 Pneumonia, unspecified organism; I26.99 Other pulmonary embolism without acute cor pulmonale; K92.2 Gastrointestinal hemorrhage, unspecified; N17.9 Acute kidney failure, unspecified; D62 Acute posthemorrhagic anemia; R09.02 Hypoxemia; E86.0 Dehydration; K80.20 Calculus of gallbladder without cholecystitis without obstruction; R55 Syncope and collapse; E78.5 Hyperlipidemia, unspecified; G30.9 Alzheimer's disease, unspecified; F02.80 Dementia in other diseases classified elsewhere, unspecified severity, without behavioral disturbance, psychotic disturbance, mood disturbance, and anxiety; R50.9 Fever, unspecified; E03.9 Hypothyroidism, unspecified

== ENCOUNTER → 2019-09-18 09:34 | Outpatient (CLI) | payer MEDICARE, BC ==
[2019-07-02 14:58] VITALS: BMI 27.9
[~2019-09-18 09:34] MED LIST changes: +ELIQUIS5 MG PO
[2019-09-18 09:55] LABS: BASOPHILS 0.2 % (0-2); EOSINOPHILS 1.8 % (0-7); HEMATOCRIT 37.9 % (36.0-48.0); LYMPHOCYTES 18.6 % (15-50); MCH 28.2 pg (26.0-34.0); MCHC 31.7 g/dL (31.0-37.0); MCV 89.2 fL (80.0-100.0); MEAN PLATELET VOLUME 10.4 fL (7.4-10.4); MONOCYTES 10.2 % (2-11); NEUTROPHILS 69.2 % (40-80); PLATELET COUNT 201 10x3/uL (130-400); RBC 4.25 10x6/uL (4.00-5.40); RDW 15.7 % (11.5-14.5)
== END | disposition home or self-care (01) ==
LOC: D.LAB 09:34 → D.RAD 11:00
PROVIDERS: ATTEND Internal Medicine Gastroenterology
DX: R13.10 Dysphagia, unspecified (principal); D64.9 Anemia, unspecified